=== PATIENT | female | born 1940 | race Caucasian/White ===

== ENCOUNTER 2017-02-07 23:45 | Emergency (ER) | payer OTHER ==
[~2017-02-07] VITALS: Ht 160 cm; Wt 68.0 kg
[~2017-02-07 23:45] MED LIST: ALAV10TA PO; AMLO10TA2 PO; BRIM0.2S EACH EYE; CEPH250T PO; CITRTAB7 PO; CRAN425C2 PO; FLON0.053 EACH NARE; FORT600S; FURO20TA PO; LACT10SO47 PO; LEVE500 PO; LEVO.05 PO; LISI-360 PO; TRAZ50TA12 PO; TRIA.1%T TOP
[2017-02-07 23:51] VITALS: BP 106/50; PULSE 71; RESP 16; TEMP 97.2; O2SAT 100
[2017-02-08] MEDS ORDERED: SPIR25TA PO (00:12)
[2017-02-08] MEDS ORDERED: LISI-515 PO (00:12)
[2017-02-08] MEDS ORDERED: OMEP10CA PO (00:12)
--- NOTE | 2017-02-08 01:07 | PD ---
HPI Chief Complaint: Musculoskeletal Complaint Time Seen by Provider: 01:02 Travel History International Travel<30 days: No Contact w/Intl Traveler<30days: No Traveled to known affect area: No History of Present Illness HPI The patient is a 76-year-old female that lost balance and fell tonight and landed on her right arm. She is not specific about where her right arm hurts, the entire right arm hurts according the patient. 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 PFSH Past Medical History Hx Anticoagulant Therapy: No Anemia: Yes Arthritis: No Asthma: No Autoimmune Disease: No Blood Disorders: No Anxiety: No Depression: No Heart Rhythm Problems: No Cancer: No Cardiovascular Problems: Yes (htn on meds) High Cholesterol: No Chemotherapy: No Chest Pain: No Congestive Heart Failure: No COPD: No Cerebrovascular Accident: Yes (hx of cva right side weakness) Diabetes: No Diminished Hearing: No Endocrine: Yes Gastrointestinal Disorders: Yes (COLON INFECTION 20 YRS AGO) GERD: No Glaucoma: No Genitourinary: Yes (FREQUENT UTI'S SINCE STROKE) Headaches: Yes Hepatitis: No Hiatal Hernia: No Hypertension: Yes Immune Disorder: No Implanted Vascular Access Dvce: Yes Kidney Stones: No Medical other: Yes (RECEPTIVE AND EXPRESSIVE APHASIA, PT HAD MYELOGRAM ON 2014) Musculoskeletal: Yes (R SIDED WEAKNESS, R ARM PARALYZED,COMP FX SPINE,ARTHRITIS ,SPINE INJURY 06/01) Neurologic: Yes (HEMMOR STROKE IN DEC 1991, R SIDE WEAKNESS, R ARM PARALYZED, HX OF SEIZURES) Psychiatric: Yes (SLIGHTLY CLAUSTROPHOBIC) Reproductive: No Respiratory: No Immunizations Current: Yes Migraines: No Myocardial Infarction: No Renal Failure: No Seizures: Yes Sickle Cell Disease: No Sleep Apnea: No Thyroid Disease: Yes (HYPO THYROID) Ulcer: No ?: Not Menopausal: Yes : 3 Para: 3 Past Surgical History Abdominal Surgery: No AICD: No Appendectomy: No Arteriovenous Shunt: No Body Medical Devices: ANEURYSM CLIP, SHUNT IN BRAIN Cardiac Surgery: No Section: No Ear Surgery: No Endocrine Surgery: No Eye Surgery: Yes (BILAT CATARACTS REMOVED) Genitourinary Surgery: No Gynecologic Surgery: No Insulin Pump: Yes Joint Replacement: No Neurologic Surgery: Yes (ANEURYSM CLIP AND SHUNT IN BRAIN june 2014 back surgery/fused t10-L4) Oral Surgery: No Pacemaker: No Thoracic Surgery: Yes (R BREAST CYST REMOVED) Other Surgery: Yes Social History Alcohol Use: Yes (occasional ) Tobacco Use: No Substance Use: No Allergies-Medications (Allergen,Severity, Reaction): Coded Allergies: ciprofloxacin (Unverified Allergy, Unknown, 11/01/16) LOW GRADE FEVER AND DISORIENTATION levofloxacin (Unverified Allergy, Unknown, 11/01/16) LOW GRADE FEVER, DISORIENTATION Reported Meds & Prescriptions Reported Meds & Active Scripts Active Reported Spironolactone 25 Mg Tab 25 Mg PO DAILY Omeprazole 10 Mg Cap 10 Mg PO DAILY Lisinopril 20 Mg Tab 20 Mg PO DAILY Keppra (Levetiracetam) 500 Mg Tab 500 Mg PO BID Trazodone (Trazodone HCl) 50 Mg Tab 25 Mg PO HS Review of Systems Except as stated in HPI: all other systems reviewed are Neg Physical Exam Narrative GENERAL: Well-nourished, well-developed patient in slight apparent distress with her right arm discomfort. SKIN: Focused skin assessment warm/dry. HEAD: Normocephalic. EYES: No scleral icterus. No injection or drainage. NECK: Supple, trachea midline. No JVD or lymphadenopathy. CARDIOVASCULAR: Regular rate and rhythm without murmurs, gallops, or rubs. RESPIRATORY: Breath sounds equal bilaterally. No accessory muscle use. GASTROINTESTINAL: Abdomen soft, non-tender, nondistended. MUSCULOSKELETAL: No cyanosis, or edema. No ecchymoses or deformity are present. Good capillary refill and pinprick is present distally on the right hand. BACK: Nontender without obvious deformity. No CVA tenderness. Data Data Last Documented VS Vital Signs Date Time Temp Pulse Resp B/P (MAP) Pulse Ox O2 Delivery O2 Flow Rate FiO2 02/07/17 23:51 97.2 71 16 106/50 (68) 100 Orders Orders Forearm (2vws) (02/08/17 ) Shoulder, Limited(2vws) (02/08/17 ) Humerus (Min 2vws) (02/08/17 ) Oxycodone-Acetamin 7.5-325 Mg (Percocet (02/08/17 01:45) MDM Medical Decision Making Medical Screen Exam Complete: Yes Emergency Medical Condition: Yes Medical Record Reviewed: Yes Interpretation(s) The patient has an acute fracture in the supracondylar region of the distal right humerus. There is mild posterior angulation deformity and the articular surfaces are intact. No subluxations are seen. X-rays of the right forearm and right shoulder show osteopenia and osteoarthritis but no acute fracture. Differential Diagnosis Fracture shoulder, fractured humerus, fracture forearm, contusion forearm, contusion elbow, contusion shoulder, rotator cuff tear Narrative Course The patient has a mostly nondisplaced fracture of the distal right humerus. There is mild posterior angulation deformity. No subluxations are noted. Diagnosis Primary Impression: Supracondylar fracture of right humerus Additional Instructions: As we discussed, follow-up with orthopedics, call later on today to set up an appointment. Percocet 5 is prescribed for pain, do not drink alcohol or drive with this medication and she should drink plenty of liquids because it can be constipating. Med/Other Pt SpecificInfo: Prescription(s) given Scripts Oxycodone-Acetaminophen (Percocet) 5-325 mg Tab 1 TAB PO Q6H Y for PAIN, #21 TAB 0 Refills Prov: Glenroy Flores MD 02/08/17 Disposition: 01 DISCHARGE HOME Condition: Stable Glenroy Flores MD Feb 08, 2017 01:07
--- NOTE | 2017-02-08 01:19 | RADRPT ---
EXAM DATE/TIME: 02/08/2017 00:38 [facility] COMPARISON: No previous studies available for comparison. INDICATIONS : Right forearm pain after fall. MEDICAL HISTORY : Stroke. SURGICAL HISTORY : Cholecystectomy. Craniotomy.aneurysm clipping ENCOUNTER: Initial ACUITY: 1 day PAIN SCORE: 10/10 LOCATION: Right forearm. FINDINGS: I don't see an acute fracture of the right radius or ulna. I believe there is an old, healed olecrano n fracture. Bones are diffusely osteopenic. CONCLUSION: No acute fracture of the right forearm. Ashwin Gardner MD on February 08, 2017 at 1:16 Board Certified Radiologist. This report was verified electronically.
--- NOTE | 2017-02-08 01:21 | RADRPT ---
EXAM DATE/TIME: 02/08/2017 00:38 [facility] COMPARISON: No previous studies available for comparison. INDICATIONS : Right arm pain after fall. MEDICAL HISTORY : Stroke. SURGICAL HISTORY : Cholecystectomy. Craniotomy.aneurysm clipping ENCOUNTER: Initial ACUITY: 1 day PAIN SCORE: 10/10 LOCATION: Right proximal humerus. FINDINGS: An acute appearing fracture is seen in the supracondylar region of the distal right humerus. There is mild posterior angulation deformity. I believe the articular surfaces are intact. There are no sublu xations. CONCLUSION: Distal right humerus fracture with slight posterior angulation deformity. Ashwin Gardner MD on February 08, 2017 at 1:18 Board Certified Radiologist. This report was verified electronically.
--- NOTE | 2017-02-08 01:24 | RADRPT ---
EXAM DATE/TIME: 02/08/2017 00:38 [facility] COMPARISON: No previous studies available for comparison. INDICATIONS : Right shoulder pain after fall. MEDICAL HISTORY : Stroke. SURGICAL HISTORY : Cholecystectomy. Craniotomy.aneurysm clipping ENCOUNTER: Initial ACUITY: 1 day PAIN SCORE: 10/10 LOCATION: Right proximal shoulder. FINDINGS: No fracture or subluxation seen of the right shoulder. Moderate acromioclavicular ankle and humeral j oint osteoarthritis noted. Bones are osteopenic. A ventriculoperitoneal shunt catheter is partly seen and there is considerable partly calcified fibro us sheath around its margins. CONCLUSION: Intact right shoulder. Moderate osteoarthritis. Ashwin Gardner MD on February 08, 2017 at 1:20 Board Certified Radiologist. This report was verified electronically.
[2017-02-08] MEDS ORDERED: PERC5TAB12 PO (01:37)
[2017-02-08] MEDS ORDERED: oxyCODONE/ACETAMINOPHEN 7.5 MG/325 MG TAB PO ONE (01:45)
[2017-02-08 02:35] VITALS: BP 110/68
== END 2017-02-08 02:38 | disposition home or self-care (01) ==
LOC: PHED 23:45
DX: S42.411A Displaced simple supracondylar fracture without intercondylar fracture of right humerus, initial encounter for closed fracture (principal); W01.0XXA Fall on same level from slipping, tripping and stumbling without subsequent striking against object, initial encounter
CPT/HCPCS: 29105; 73030; 73060; 73090

== ENCOUNTER 2017-06-16 11:52 | Inpatient (IN) | payer OTHER, MEDICARE ==
[2017-06-16] VITALS (37 sets, daily range): BP systolic 61–133; BP diastolic 28–86; PULSE 56–86; RESP 17–18; TEMP 92.2–97.2; O2SAT 95–99
[~2017-06-16] VITALS: Ht 160 cm; Wt 78.5 kg
[~2017-06-16 11:52] MED LIST changes: -ALAV10TA PO; -AMLO10TA2 PO; -BRIM0.2S EACH EYE; -CEPH250T PO; -CITRTAB7 PO; -CRAN425C2 PO; -FLON0.053 EACH NARE; -FORT600S; -FURO20TA PO; -LACT10SO47 PO; -LEVO.05 PO; -LISI-360 PO; +LISI-515 PO; +OMEP10CA PO; +PERC5TAB12 PO; +SPIR25TA PO; -TRIA.1%T TOP
[2017-06-16 12:37] LABS: AUTOMATED NEUTROPHIL # 1.3 TH/MM3 (1.8-7.7); BASOPHIL # 0.1 TH/MM3 (0-0.2); BASOPHIL % 1.8 % (0.0-2.0); EOSINOPHIL # 0.1 TH/MM3 (0-0.4); EOSINOPHIL % 2.5 % (0.0-4.0); HEMATOCRIT 26.4 % (35.0-46.0); HEMOGLOBIN 8.9 GM/DL (11.6-15.3); LYMPH % 43.2 % (9.0-44.0); LYMPHOCYTE # 1.5 TH/MM3 (1.0-4.8); MEAN CELL VOLUME 94.5 FL (80.0-100.0); MEAN CORPUSCULAR HEMOGLOBIN 31.7 PG (27.0-34.0); MEAN CORPUSCULAR HGB CONC 33.6 % (32.0-36.0); MEAN PLATELET VOLUME 7.7 FL (7.0-11.0); MONO % 14.7 % (0.0-8.0); MONOCYTE # 0.5 TH/MM3 (0-0.9); NEUT % 37.8 % (16.0-70.0); PLATELET COUNT 95 TH/MM3 (150-450); RED BLOOD COUNT 2.79 MIL/MM3 (4.00-5.30); RED CELL DISTRIBUTION WIDTH 14.4 % (11.6-17.2); WHITE BLOOD COUNT 3.5 TH/MM3 (4.0-11.0)
[2017-06-16] MEDS ORDERED: THERTAB41 PO (12:39)
[2017-06-16] MEDS ORDERED: LEVO50TA4 PO (12:39)
[2017-06-16] MEDS ORDERED: CLAR10CA3 PO (12:39)
[2017-06-16] MEDS ORDERED: BRIM0.2S4 EACH EYE (12:39)
[2017-06-16] MEDS ORDERED: CALC1TAB16 PO (12:39)
[2017-06-16] MEDS ORDERED: FLUT50SP EACH NARE (12:39)
[2017-06-16] MEDS ORDERED: LACT10SO PO (12:39)
[2017-06-16 12:45] LABS: CHLORIDE 97 MEQ/L (98-107); SODIUM (NA) 131 MEQ/L (136-145)
[2017-06-16 12:48] LABS: BICARBONATE 26.1 MEQ/L (21.0-32.0); GLUCOSE,RANDOM 106 MG/DL (74-106)
[2017-06-16 12:49] LABS: BLOOD UREA NITROGEN 21 MG/DL (7-18)
[2017-06-16 12:51] LABS: ALT (GPT) 28 U/L (10-53); PROTHROMBIN TIME - PATIENT 10.1 SEC (9.8-11.6)
[2017-06-16 12:52] LABS: AST (GOT) 30 U/L (15-37); GLOMERULAR FILTRATION RATE 48 ML/MIN (>89)
[2017-06-16 12:53] LABS: TOTAL BILIRUBIN ADULT 0.4 MG/DL (0.2-1.0); TOTAL PROTEIN 6.6 GM/DL (6.4-8.2)
--- NOTE | 2017-06-16 12:53 | PD ---
HPI Chief Complaint: General Weakness Time Seen by Provider: 12:40 Travel History International Travel<30 days: No Contact w/Intl Traveler<30days: No Traveled to known affect area: No History of Present Illness HPI This patient is brought in by her . He reports that her blood pressures have been running lower than usual. She has history of alcohol induced liver disease. She now drinks. She has history of anemia and thrombocytopenia. She has not had any fever or injury. She has chronic leg edema. She has generalized weakness. Symptoms moderately severe. No alleviating factors. Symptoms exacerbated by her liver disease. Duration is 2 weeks PFSH Past Medical History Hx Anticoagulant Therapy: No Anemia: Yes Arthritis: No Asthma: No Autoimmune Disease: No Blood Disorders: No Anxiety: No Depression: No Heart Rhythm Problems: No Cancer: No Cardiovascular Problems: Yes (htn on meds) High Cholesterol: No Chemotherapy: No Chest Pain: No Congestive Heart Failure: No COPD: No Cerebrovascular Accident: Yes (hx of cva right side weakness) Diabetes: No Diminished Hearing: No Endocrine: Yes Gastrointestinal Disorders: Yes (COLON INFECTION 20 YRS AGO) GERD: No Glaucoma: No Genitourinary: Yes (FREQUENT UTI'S SINCE STROKE) Headaches: Yes Hepatitis: No Hiatal Hernia: No Hypertension: Yes Immune Disorder: No Implanted Vascular Access Dvce: Yes Kidney Stones: No Medical other: Yes (RECEPTIVE AND EXPRESSIVE APHASIA) Musculoskeletal: Yes (R SIDED WEAKNESS, R ARM PARALYZED,COMP FX SPINE,ARTHRITIS ,SPINE INJURY 06/01) Neurologic: Yes (HEMMOR STROKE IN DEC 1991, R SIDE WEAKNESS, R ARM PARALYZED, HX OF SEIZURES) Psychiatric: Yes (SLIGHTLY CLAUSTROPHOBIC) Reproductive: No Respiratory: No Immunizations Current: Yes Migraines: No Myocardial Infarction: No Renal Failure: No Seizures: Yes Sickle Cell Disease: No Sleep Apnea: No Thyroid Disease: Yes (HYPO THYROID) Ulcer: No ?: Not Menopausal: Yes : 3 Para: 3 Past Surgical History Abdominal Surgery: No AICD: No Appendectomy: No Arteriovenous Shunt: No Body Medical Devices: ANEURYSM CLIP, SHUNT IN BRAIN Cardiac Surgery: No Section: No Ear Surgery: No Endocrine Surgery: No Eye Surgery: Yes (BILAT CATARACTS REMOVED) Genitourinary Surgery: No Gynecologic Surgery: No Insulin Pump: Yes Joint Replacement: No Neurologic Surgery: Yes (ANEURYSM CLIP, SHUNT W/ REVISION) Oral Surgery: No Pacemaker: No Thoracic Surgery: Yes (R BREAST CYST REMOVED) Other Surgery: Yes Social History Alcohol Use: No (FORMER) Tobacco Use: No Substance Use: No Allergies-Medications (Allergen,Severity, Reaction): Coded Allergies: amoxicillin (Verified Allergy, Severe, DISORIENTED, 06/16/17) ceftriaxone (Verified Allergy, Severe, DISORIENTED, 06/16/17) ciprofloxacin (Unverified Allergy, Unknown, DISORIENTED, 06/16/17) LOW GRADE FEVER AND DISORIENTATION levofloxacin (Unverified Allergy, Unknown, DISORIENTED, 06/16/17) LOW GRADE FEVER, DISORIENTATION Reported Meds & Prescriptions Reported Meds & Active Scripts Active Reported Lactulose Liq (Lactulose) 10 Gm/15 Ml Soln 15 Ml PO Q8HR PRN Thermotabs (Oral Electrolytes) 287 Mg-180 Mg-15 Mg Tab 1 Tab PO DAILY Levothyroxine (Levothyroxine Sodium) 50 Mcg Tab 50 Mcg PO DAILY Claritin (Loratadine) 10 Mg Cap 10 Mg PO DAILY Brimonidine Opth Drops (Brimonidine Tartrate) 0.2% Soln 1 Drop EACH EYE BID Calcium Citrate-Vitamin D 315-200 Mg-Unit Tab 1 Tab PO BID Fluticasone [place] 50 Mcg/Act Naspr 100 Mcg EACH NARE DAILY 50 mcg/spray Spironolactone 25 Mg Tab 25 Mg PO DAILY Omeprazole 10 Mg Cap 20 Mg PO DAILY Lisinopril 20 Mg Tab 10 Mg PO BID Keppra (Levetiracetam) 500 Mg Tab 750 Mg PO BID Trazodone (Trazodone HCl) 50 Mg Tab 25 Mg PO HS Review of Systems General / Constitutional: No: Fever Eyes: No: Visual changes HENT: Positive: Lightheadedness, No: Headaches Cardiovascular: Positive: Edema, No: Chest Pain or Discomfort Respiratory: No: Shortness of Breath Gastrointestinal: No: Abdominal Pain Genitourinary: No: Dysuria Musculoskeletal: Positive: Weakness, Edema, No: Pain Skin: No Rash Neurologic: Positive: Weakness Psychiatric: No: Depression Endocrine: No: Polydipsia Hematologic/Lymphatic: No: Easy Bruising Physical Exam Narrative GENERAL: Well-nourished, well-developed patient in no apparent distress. SKIN: Focused skin assessment reveals no rash and nodules. Skin is Warm and dry. HEAD: Atraumatic. has a right-sided [employer] shunt without tenderness or erythema EYES: Pupils equal and round. No scleral icterus. No injection or drainage. ENT: No nasal bleeding or discharge. Mucous membranes pink and moist. NECK: Trachea midline. No JVD. No meningeal signs CARDIOVASCULAR: Regular rate and rhythm. No murmur appreciated. RESPIRATORY: No accessory muscle use. Clear to auscultation. Breath sounds equal bilaterally. GASTROINTESTINAL: Abdomen soft, non-tender, nondistended. Hepatic and splenic margins not palpable. MUSCULOSKELETAL: Contraction and paresis of the right upper extremity from prior stroke. No clubbing. No cyanosis. Symmetric edema of the feet ankles and lower legs . NEUROLOGICAL: Awake and alert. No obvious cranial nerve deficits. Motor exam shows mostly paralyzed right arm with generalized weakness diffusely . Soft spoken and barely understandable speech. PSYCHIATRIC: Appropriate mood and affect; insight and judgment reduced . Data Data Last Documented VS Vital Signs Date Time Temp Pulse Resp B/P (MAP) Pulse Ox O2 Delivery O2 Flow Rate FiO2 06/16/17 13:36 63 18 80/43 (55) 97 06/16/17 13:05 94.5 Room Air Orders Orders Complete Blood Count With Diff (06/16/17 12:24) Comprehensive Metabolic Panel (06/16/17 12:24) Act Partial Throm Time (Ptt) (06/16/17 12:24) Prothrombin Time / Inr (Pt) (06/16/17 12:24) Urinalysis - C+S If Indicated (06/16/17 12:24) Electrocardiogram (06/16/17 ) Chest, Single Ap (06/16/17 ) Sodium Chlor 0.9% 1000 Ml Inj (Ns 1000 M (06/16/17 13:00) Urine Culture (06/16/17 13:34) Ceftazidime Inj (Fortaz Inj) (06/16/17 14:15) Blood Culture (06/16/17 14:10) Admit Order (Ed Use Only) (06/16/17 14:32) Labs Laboratory Tests Test 06/16/17 12:15 06/16/17 13:34 White Blood Count 3.5 TH/MM3 Red Blood Count 2.79 MIL/MM3 Hemoglobin 8.9 GM/DL Hematocrit 26.4 % Mean Corpuscular Volume 94.5 FL Mean Corpuscular Hemoglobin 31.7 PG Mean Corpuscular Hemoglobin Concent 33.6 % Red Cell Distribution Width 14.4 % Platelet Count 95 TH/MM3 Mean Platelet Volume 7.7 FL Neutrophils (%) (Auto) 37.8 % Lymphocytes (%) (Auto) 43.2 % Monocytes (%) (Auto) 14.7 % Eosinophils (%) (Auto) 2.5 % Basophils (%) (Auto) 1.8 % Neutrophils # (Auto) 1.3 TH/MM3 Lymphocytes # (Auto) 1.5 TH/MM3 Monocytes # (Auto) 0.5 TH/MM3 Eosinophils # (Auto) 0.1 TH/MM3 Basophils # (Auto) 0.1 TH/MM3 CBC Comment AUTO DIFF Differential Comment AUTO DIFF CONFIRMED Platelet Estimate LOW Platelet Morphology Comment NORMAL Prothrombin Time 10.1 SEC Prothromb Time International Ratio 1.0 RATIO Activated Partial Thromboplast Time 27.2 SEC Blood Urea Nitrogen 21 MG/DL Creatinine 1.10 MG/DL Random Glucose 106 MG/DL Total Protein 6.6 GM/DL Albumin 3.0 GM/DL Calcium Level 9.0 MG/DL Alkaline Phosphatase 91 U/L Aspartate Amino Transf (AST/SGOT) 30 U/L Alanine Aminotransferase (ALT/SGPT) 28 U/L Total Bilirubin 0.4 MG/DL Sodium Level 131 MEQ/L Potassium Level 4.2 MEQ/L Chloride Level 97 MEQ/L Carbon Dioxide Level 26.1 MEQ/L Anion Gap 8 MEQ/L Estimat Glomerular Filtration Rate 48 ML/MIN Urine Collection Type CATH Urine Color YELLOW Urine Turbidity SL CLOUDY Urine pH 6.5 Urine Specific [place] LESS/EQUAL 1.005 Urine Protein NEG mg/dL Urine Glucose (UA) NEG mg/dL Urine Ketones NEG mg/dL Urine Occult Blood TRACE Urine Nitrite NEG Urine Bilirubin NEG Urine Urobilinogen 0.2 MG/DL Urine Leukocyte Esterase LARGE Urine RBC 4-9 /hpf Urine WBC 100-200 /hpf Urine WBC Clumps MOD Urine Bacteria MANY /hpf Microscopic Urinalysis Comment CATH-CULTURE IND Urine Collection Time 13:34 MDM Medical Decision Making Medical Screen Exam Complete: Yes Emergency Medical Condition: Yes Medical Record Reviewed: Yes Differential Diagnosis Dehydration, hypotension, anemia Narrative Course I have reviewed the patient's electronic medical record. I reviewed her oncologist visit from 2 weeks ago IV placed and I started some IV fluid at 250 cc of saline per hour She is hypotensive at 93 systolic Has sinus rhythm in the 60s Extended cardiac monitoring reveals sinus rhythm between 60 and 70 I reviewed her EKG which shows sinus rhythm without ectopy or ST elevation Lab studies sent Urinalysis shows 1-200 white cells I reviewed her chest x-ray which shows mild cardiomegaly patient has hepatic encephalopathy and her gives her lactulose daily Current blood pressure 102 systolic She seems to be improving She is DNR and I do not feel needs bonding machine setter at this time I reviewed with the hospitalist to we will put her into intensive care I gave her a dose of IV Fortaz. She does not have a true allergy to cephalosporin. I reviewed this with the . I have ordered a blood culture Critical Care Narrative Aggregate critical care time was 36 minutes. Time to perform other separately billable procedures was not included in the critical care time. My time did not include minutes spent treating any other patients simultaneously or on activities that did not directly contribute to the patient's treatment. The services I provided to this patient were to treat and/or prevent clinically significant deterioration that could result in: Cardiopulmonary arrest, hypovolemic shock, septic shock I provided critical care services requiring my management, as noted below: Chart data review, documentation time, medication orders and management, vital sign assessments/reviewing monitor data, ordering and reviewing lab tests, ordering and interpreting/reviewing x-rays and diagnostic studies, care of the patient and discussion of the patient with the admitting physicians. Sepsis Criteria SIRS Criteria (2 or more): Temp > 100.9 or < 96.8 Sepsis Criteria (SIRS+source): Infect source susp/known Severe Sepsis (+one): Hypotension Criteria Outcome: Meets severe sepsis criteria Diagnosis Primary Impression: Severe sepsis Additional Impressions: Cirrhosis of liver Qualified Codes: K70.30 - Alcoholic cirrhosis of liver without ascites Pancytopenia Admitting Information Admitting Physician Requests: Admit Erik Szymanski MD Jun 16, 2017 12:53
[2017-06-16 12:54] LABS: ALKALINE PHOSPHATASE 91 U/L (45-117)
[2017-06-16] MEDS ORDERED: SODIUM CHLOR 0.9% 1000 ML INJ 1,000 ML IV ONE ×2 (13:00→23:30)
--- NOTE | 2017-06-16 13:20 | RADRPT ---
EXAM DATE/TIME: 06/16/2017 12:45 [facility] COMPARISON: CHEST SINGLE AP, June 22, 2015, 7:01. INDICATIONS : Cough MEDICAL HISTORY : Stroke. SURGICAL HISTORY : Cholecystectomy. Craniotomy. aneurysm clipping ENCOUNTER: Initial ACUITY: 1 day PAIN SCORE: 0/10 LOCATION: Bilateral chest FINDINGS: A single view of the chest demonstrates the lungs to be symmetrically aerated without evidence of mas s, infiltrate or effusion. The heart size appears mildly prominent. There is no perihilar edema. Oss eous structures are intact. There is overlying shunt catheter tubing again noted. Surgical hardware i s again noted in the lumbar spine. Atherosclerotic changes are present in the aorta. CONCLUSION: Mild cardiomegaly with no evidence of pulmonary edema or pneumonia. Tae Roy MD on June 16, 2017 at 13:17 Board Certified Radiologist. This report was verified electronically.
[2017-06-16 13:43] LABS: BILIRUBIN, URINE NEG (NEG); BLOOD, URINE TRACE (NEG); GLUCOSE,URINE NEG (NEG); KETONE, URINE NEG (NEG); NITRITE,URINE NEG (NEG); PH, URINE 6.5 (5.0-8.5); URINE COLOR YELLOW (YELLW/STRAW); URINE LEUKOCYTE ESTERASE LARGE (NEG)
[2017-06-16 13:49] LABS: BACTERIA, URINE MANY /hpf; WBC, URINE 100-200 /hpf (0-5); WHITE BLOOD CELL CLUMPS MOD
[2017-06-16] MEDS ORDERED: cefTAZidime INJ 2,000 MG in SODIUM CHLORIDE 0.9% INJ 100 ML IV ONE (14:15)
[2017-06-16] MEDS: SODIUM CHLOR 0.9% 1000 ML INJ 1,000 ML IV SCH ×2 (14:35→21:15)
[2017-06-16] MEDS ORDERED: NALOXONE HCL 0.4 MG/ML AMP IV PUSH PRN (14:45)
[2017-06-16] MEDS ORDERED: SODIUM CHLORIDE 0.9% FLUSH 10 ML FLUSH IV FLUSH PRN ×2 (14:45→15:00)
--- NOTE | 2017-06-16 14:56 | HHI.HP ---
[facility] Service [place] [facility] Primary Care Physician Obey Hill Do, MD Admission Diagnosis hypotension, UTI,cirrhosis Diagnoses: (1) Hypotension Diagnosis: Principal (2) Septic shock Diagnosis: Principal (3) UTI (urinary tract infection) Diagnosis: Principal (4) Severe sepsis Diagnosis: Principal (5) Pancytopenia Diagnosis: Principal Travel History International Travel<30 Days: No Contact w/Intl Traveler <30 Da: No Traveled to Known Affected Are: No History of Present Illness Mrs. Kiran is a 76 year old female. At baseline she has expressive and receptive aphasia. She can provide no history. She has brought in secondary to low blood pressures at home. She is found to have urinary tract infection. Temperature is a little. Blood pressure is low. White blood cell count is suppressed. She meets criteria for septic shock. Lactic acid is pending. A review of her past hospital visit shows no previous history of chronic hypothermia, chronic hypotension, or chronic leukopenia. No other complaints at this time. 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 Bilateral cataract surgery Insulin pump Right breast cyst removal Reported Medications Reported Meds & Active Scripts Active Reported Lactulose Liq (Lactulose) 10 Gm/15 Ml Soln 15 Ml PO Q8HR PRN Thermotabs (Oral Electrolytes) 287 Mg-180 Mg-15 Mg Tab 1 Tab PO DAILY Levothyroxine (Levothyroxine Sodium) 50 Mcg Tab 50 Mcg PO DAILY Claritin (Loratadine) 10 Mg Cap 10 Mg PO DAILY Brimonidine Opth Drops (Brimonidine Tartrate) 0.2% Soln 1 Drop EACH EYE BID Calcium Citrate-Vitamin D 315-200 Mg-Unit Tab 1 Tab PO BID Fluticasone Nasal [place] 50 Mcg/Act Naspr 100 Mcg EACH NARE DAILY 50 mcg/spray Spironolactone 25 Mg Tab 25 Mg PO DAILY Omeprazole 10 Mg Cap 20 Mg PO DAILY Lisinopril 20 Mg Tab 10 Mg PO BID Keppra (Levetiracetam) 500 Mg Tab 750 Mg PO BID Trazodone (Trazodone HCl) 50 Mg Tab 25 Mg PO HS Allergies: Coded Allergies: amoxicillin (Verified Allergy, Severe, DISORIENTED, 06/16/17) ceftriaxone (Verified Allergy, Severe, DISORIENTED, 06/16/17) ciprofloxacin (Unverified Allergy, Unknown, DISORIENTED, 06/16/17) LOW GRADE FEVER AND DISORIENTATION levofloxacin (Unverified Allergy, Unknown, DISORIENTED, 06/16/17) LOW GRADE FEVER, DISORIENTATION Active Ordered Medications Administered Medications Medications (Trade) Dose Ordered Sig/Do Route PRN Reason Start Time Stop Time Status Last Admin Dose Admin Sodium Chloride 1,000 ml @ 250 mls/hr Q4H ONCE IV 06/16/17 13:00 06/16/17 16:59 06/16/17 12:54 Ceftazidime 2000 mg/Sodium Chloride 100 ml @ 200 mls/hr ONCE ONCE IV 06/16/17 14:15 06/16/17 14:44 06/16/17 14:40 Family History Unable to obtain. Social History Alcohol Use: No (FORMER) Tobacco Use: No Substance Use: No Physical Exam Vital Signs Vital Signs Date Time Temp Pulse Resp B/P (MAP) Pulse Ox O2 Delivery O2 Flow Rate FiO2 06/16/17 13:36 63 18 80/43 (55) 97 06/16/17 13:05 94.5 61 18 84/38 (53) 97 Room Air 06/16/17 12:35 92.2 06/16/17 12:26 62 18 73/37 (49) 97 Physical Exam GENERAL: NAD, A&Ox3 HEAD: Normocephalic. NECK: Supple, trachea midline. No lymphadenopathy. EYES: No scleral icterus. No injection or drainage. CARDIOVASCULAR: Regular rate and rhythm without murmurs, gallops, or rubs. RESPIRATORY: Breath sounds equal bilaterally. No accessory muscle use. GASTROINTESTINAL: Abdomen soft, non-tender, nondistended. MUSCULOSKELETAL: No cyanosis, or edema. SKIN: Warm and dry. NEURO: No focal neurological deficitis. Laboratory Laboratory Tests Test 06/16/17 12:15 06/16/17 13:34 White Blood Count 3.5 Red Blood Count 2.79 Hemoglobin 8.9 Hematocrit 26.4 Mean Corpuscular Volume 94.5 Mean Corpuscular Hemoglobin 31.7 Mean Corpuscular Hemoglobin Concent 33.6 Red Cell Distribution Width 14.4 Platelet Count 95 Mean Platelet Volume 7.7 Neutrophils (%) (Auto) 37.8 Lymphocytes (%) (Auto) 43.2 Monocytes (%) (Auto) 14.7 Eosinophils (%) (Auto) 2.5 Basophils (%) (Auto) 1.8 Neutrophils # (Auto) 1.3 Lymphocytes # (Auto) 1.5 Monocytes # (Auto) 0.5 Eosinophils # (Auto) 0.1 Basophils # (Auto) 0.1 CBC Comment AUTO DIFF Differential Comment AUTO DIFF CONFIRMED Platelet Estimate LOW Platelet Morphology Comment NORMAL Prothrombin Time 10.1 Prothromb Time International Ratio 1.0 Activated Partial Thromboplast Time 27.2 Blood Urea Nitrogen 21 Creatinine 1.10 Random Glucose 106 Total Protein 6.6 Albumin 3.0 Calcium Level 9.0 Alkaline Phosphatase 91 Aspartate Amino Transf (AST/SGOT) 30 Alanine Aminotransferase (ALT/SGPT) 28 Total Bilirubin 0.4 Sodium Level 131 Potassium Level 4.2 Chloride Level 97 Carbon Dioxide Level 26.1 Anion Gap 8 Estimat Glomerular Filtration Rate 48 Urine Collection Type CATH Urine Color YELLOW Urine Turbidity SL CLOUDY Urine pH 6.5 Urine Specific [place] LESS/EQUAL 1.005 Urine Protein NEG Urine Glucose (UA) NEG Urine Ketones NEG Urine Occult Blood TRACE Urine Nitrite NEG Urine Bilirubin NEG Urine Urobilinogen 0.2 Urine Leukocyte Esterase LARGE Urine RBC 4-9 Urine WBC 100-200 Urine WBC Clumps MOD Urine Bacteria MANY Microscopic Urinalysis Comment CATH-CULTURE IND Urine Collection Time 13:34 Date/Time Source Procedure Growth Status 06/16/17 14:30 Blood Peripheral Aerobic Blood Culture Pending Received 06/16/17 14:30 Blood Peripheral Anaerobic Blood Culture Pending Received 06/16/17 13:34 Urine Catheterized Urine Urine Culture Pending Received Result Diagram: 06/16/17 1215 06/16/17 1215 Imaging Last Impressions Chest X-Ray 06/16/17 0000 Signed Impressions: Service Date/Time: Friday, June 16, 2017 12:45 - CONCLUSION: Mild cardiomegaly with no evidence of pulmonary edema or pneumonia. Tae R. Schiering, MD Caprini VTE Risk Assessment Caprini VTE Risk Assessment: No/Low Risk (score <= 1) Caprini Risk Assessment Model Point Value = 1 Point Value = 2 Point Value = 3 Point Value = 5 Age 41-60 Minor surgery BMI > 25 kg/m2 Swollen legs Varicose veins or History of unexplained or recurrent spontaneous Oral contraceptives or hormone replacement Sepsis (< 1 month) Serious lung disease, including pneumonia (< 1 month) Abnormal pulmonary function Acute myocardial infarction Congestive heart failure (< 1 month) History of inflammatory bowel disease Medical patient at bed rest Age 61-74 Arthroscopic surgery Major open surgery (> 45 min) Laparoscopic surgery (> 45 min) Malignancy Confined to bed (> 72 hours) Immobilizing plaster cast Central venous access Age >= 75 History of VTE Family history of VTE Factor V Leiden Prothrombin [id number] Lupus anticoagulant Anticardiolipin antibodies Elevated serum homocysteine Heparin-induced thrombocytopenia Other congenital or acquired thrombophilia Stroke (< 1 month) Elective arthroplasty Hip, pelvis, or leg fracture Acute spinal cord injury (< 1 month) Prophylaxis Regimen Total Risk Factor Score Risk Level Prophylaxis Regimen 0-1 Low Early ambulation 2 Moderate Order ONE of the following: *Sequential Compression Device (SCD) *Heparin 5000 units SQ BID 3-4 Higher Order ONE of the following medications: *Heparin 5000 units SQ TID *Enoxaparin/Lovenox 40 mg SQ daily (WT < 150 kg, CrCl > 30 mL/min) *Enoxaparin/Lovenox 30 mg SQ daily (WT < 150 kg, CrCl > 10-29 mL/min) *Enoxaparin/Lovenox 30 mg SQ BID (WT < 150 kg, CrCl > 30 mL/min) AND/OR *Sequential Compression Device (SCD) 5 or more Highest Order ONE of the following medications: *Heparin 5000 units SQ TID (Preferred with Epidurals) *Enoxaparin/Lovenox 40 mg SQ daily (WT < 150 kg, CrCl > 30 mL/min) *Enoxaparin/Lovenox 30 mg SQ daily (WT < 150 kg, CrCl > 10-29 mL/min) *Enoxaparin/Lovenox 30 mg SQ BID (WT < 150 kg, CrCl > 30 mL/min) AND *Sequential Compression Device (SCD) Assessment and Plan Problem List: (1) Hypotension ICD Code: I95.9 - Hypotension, unspecified (2) UTI (urinary tract infection) ICD Code: N39.0 - Urinary tract infection, site not specified (3) Septic shock ICD Code: A41.9 - Sepsis, unspecified organism; R65.21 - Severe sepsis with septic shock (4) Severe sepsis ICD Code: A41.9 - Sepsis, unspecified organism; R65.20 - Severe sepsis without septic shock Status: Acute (5) Pancytopenia ICD Code: D61.818 - Other pancytopenia Status: Acute Assessment and Plan 76-year-old female admitted secondary to septic shock with urinary tract infection Septic shock Severe sepsis Hypotension Hypothermia Leukopenia Continue IV fluid replacement Pressors as needed to control blood pressures Follow for resolution Treat hypothermia with a warming blanket Follow temperatures Follow Leukopenia Lactic Acid Pending Urinary tract infection Recurrent urinary tract infections Continue Fortaz Follow urine cultures Previous UTI, from a previous admission, was enterococcus Hypertension history Treat hypotension presently. Hold blood pressure medications. Cirrhosis Hepatic encephalopathy Chronic anemia History of CVA (hemorrhagic) Right hemiplegia Expressive aphasia Receptive aphasia History of colon infection Headaches Osteoarthritis Compression fracture History of seizures Hypothyroidism Supportive care and monitoring of these conditions. No exacerbations of these conditions. No change to baseline treatment plan. DVT prophylaxis SCDs for now Physician Certification 2 Midnight Certification Type: Admission for Inpatient Services Order for Inpatient Services The services are ordered in accordance with Medicare regulations or non- Medicare payer requirements, as applicable. In the case of services not specified as inpatient-only, they are appropriately provided as inpatient services in accordance with the 2-midnight benchmark. Estimated LOS (days): 4 days is the estimated time the patient will need to remain in the hospital, assuming treatment plan goals are met and no additional complications. Post-Hospital Plan: Home Dio Wall MD Jun 16, 2017 14:56
[2017-06-16] MEDS ORDERED: TERBUTALINE INJ 1 MG/ML AMP SQ PRN (15:00)
[2017-06-16] MEDS ORDERED: NOREPINEPHRINE-DEXTROSE DRIP 250 ML IV PRN (15:00)
[2017-06-16] MEDS ORDERED: MAGNESIUM HYDROXIDE SUSP 30 ML CUP PO PRN (15:00)
[2017-06-16] MEDS ORDERED: ONDANSETRON HCL 4 MG/2 ML VIAL IVP PRN (15:00)
[2017-06-16] MEDS ORDERED: PILL SPLITTER OTHER PRN (17:00)
[2017-06-16] MEDS: LACTOBACILLUS ACIDOPHILUS TAB PO SCH (18:24)
[2017-06-16] MEDS ORDERED: SODIUM CHLORIDE 0.9% FLUSH 10 ML FLUSH IV FLUSH SCH (21:00)
[2017-06-16] MEDS: SODIUM CHLORIDE 0.9% FLUSH 10 ML FLUSH IV FLUSH SCH (21:00)
[2017-06-16] MEDS ORDERED: FAMOTIDINE 20 MG/2 ML VIAL IV PUSH SCH (21:00)
[2017-06-16] MEDS: FAMOTIDINE 20 MG TAB PO SCH (21:12)
[2017-06-16] MEDS: levETIRAcetam 500 MG TAB PO SCH (21:12)
[2017-06-16] MEDS: traZODone HCL 50 MG TAB PO SCH (21:12)
[2017-06-16] MEDS: BRIMONIDINE TARTRATE 0.2% OPHT SOLN 5 ML BTL EACH EYE SCH (21:13)
[2017-06-16] MEDS: levETIRAcetam 250 MG TAB PO SCH (21:13)
--- NOTE | 2017-06-16 23:42 | HHI.PR ---
Addendum to Inpatient Note Addendum Reason: Additional Documentation Additional Information Call received from RN at [id number] who states he placed patient on Levophed drip 40 minutes ago and patient still has a blood pressure of 69/36 on 12 MCG's of Levophed. Discussed case with Dr. Munson who agrees to assume care of patient and wants patient stabilized and transferred to the main ICU. I then discussed the patient with Dr. Landeros ED physician who has agreed to evaluate the patient for possible central line placement to stabilize for transfer. 0020: Discussed with Dr. Landeros who placed a central line in WIJ, he recommended another NS bolus of fluid. NS bolus given, transfer to main ICU ordered and consult to tripper was placed. Lena Balderas Jun 16, 2017 23:42
[2017-06-17] VITALS (50 sets, daily range): BP systolic 73–173; BP diastolic 34–83; PULSE 75–99; RESP 14–23; TEMP 93.7–97.5; O2SAT 94–100
[2017-06-17] MEDS ORDERED: SODIUM CHLOR 0.9% 1000 ML INJ 1,000 ML IV ONE (00:30)
--- NOTE | 2017-06-17 00:40 | RADRPT ---
EXAM DATE/TIME: 06/17/2017 00:21 [place] COMPARISON: CHEST SINGLE AP, June 16, 2017, 12:45. INDICATIONS : Post central line placement. MEDICAL HISTORY : Stroke. SURGICAL HISTORY : Fusion, lumbar. Cholecystectomy. Craniotomy. aneurysm clipping ENCOUNTER: Subsequent ACUITY: 1 day PAIN SCORE: Non-responsive. LOCATION: Bilateral chest FINDINGS: A single view of the chest demonstrates the lungs to be symmetrically aerated without evidence of mas s, infiltrate or effusion. The cardiomediastinal contours are unremarkable. Osseous structures are intact. There is right IJ central venous catheter in good position. Ventriculostomy catheters overlie the right chest wall unchanged CONCLUSION: Normal examination. Mild interstitial prominence. Right IJ central line with its tip overlying the SV C. No visible pneumothorax. Sumit Carter MD on June 17, 2017 at 0:38 Board Certified Radiologist. This report was verified electronically.
[2017-06-17] MEDS ORDERED: SODIUM CHLOR 0.9% 1000 ML INJ 1,000 ML IV SCH (02:30)
[2017-06-17] MEDS: LEVOTHYROXINE SODIUM 50 MCG TAB PO SCH (06:00)
[2017-06-17] MEDS ORDERED: CHLORHEXIDINE GLUCONATE 2 % 1 PACK (2 CLOTHS)(extra cloths) TOPICAL PRN (07:00)
[2017-06-17 08:21] LABS: AUTOMATED NEUTROPHIL # 2.1 TH/MM3 (1.8-7.7); BASOPHIL % 0.6 % (0.0-2.0); EOSINOPHIL % 1.2 % (0.0-4.0); HEMATOCRIT 26.1 % (35.0-46.0); LYMPH % 34.7 % (9.0-44.0); LYMPHOCYTE # 1.5 TH/MM3 (1.0-4.8); MEAN CELL VOLUME 95.5 FL (80.0-100.0); MEAN CORPUSCULAR HEMOGLOBIN 32.7 PG (27.0-34.0); MEAN CORPUSCULAR HGB CONC 34.3 % (32.0-36.0); MONO % 14.7 % (0.0-8.0); MONOCYTE # 0.6 TH/MM3 (0-0.9); NEUT % 48.8 % (16.0-70.0); PLATELET COUNT 80 TH/MM3 (150-450); RED BLOOD COUNT 2.73 MIL/MM3 (4.00-5.30); RED CELL DISTRIBUTION WIDTH 15.2 % (11.6-17.2); WHITE BLOOD COUNT 4.2 TH/MM3 (4.0-11.0)
[2017-06-17 08:41] LABS: ALBUMIN 2.8 GM/DL (3.4-5.0); ALT (GPT) 28 U/L (10-53); AST (GOT) 31 U/L (15-37); BICARBONATE 22.2 MEQ/L (21.0-32.0); BLOOD UREA NITROGEN 14 MG/DL (7-18); CALCIUM 8.3 MG/DL (8.5-10.1); CHLORIDE 106 MEQ/L (98-107); CREATININE 0.88 MG/DL (0.50-1.00); GLOMERULAR FILTRATION RATE 62 ML/MIN (>89); GLUCOSE,RANDOM 105 MG/DL (74-106); SODIUM (NA) 137 MEQ/L (136-145)
[2017-06-17 08:43] LABS: ALKALINE PHOSPHATASE 84 U/L (45-117); TOTAL BILIRUBIN ADULT 0.4 MG/DL (0.2-1.0); TOTAL PROTEIN 6.2 GM/DL (6.4-8.2)
[2017-06-17] MEDS: BRIMONIDINE TARTRATE 0.2% OPHT SOLN 5 ML BTL EACH EYE SCH ×2 (09:00→21:00)
[2017-06-17] MEDS: levETIRAcetam 250 MG TAB PO SCH ×2 (09:00→19:51)
[2017-06-17] MEDS: SODIUM CHLORIDE 0.9% FLUSH 10 ML FLUSH IV FLUSH SCH ×2 (09:00→19:40)
[2017-06-17] MEDS: FLUTICASONE PROPIONATE 50 MCG/ACT 16 GM NASAL SPRAY EACH NARE SCH (09:00)
[2017-06-17] MEDS: levETIRAcetam 500 MG TAB PO SCH ×2 (09:07→19:41)
[2017-06-17] MEDS: FAMOTIDINE 20 MG TAB PO SCH ×2 (09:07→19:41)
[2017-06-17] MEDS: LACTOBACILLUS ACIDOPHILUS TAB PO SCH ×3 (09:07→18:00)
--- NOTE | 2017-06-17 09:33 | PD.CONS ---
History of Present Illness Service Infectious disease Consult Requested By Dr Yuly Martin Reason for Consult Evaluate patient with sepsis and UTI Primary Care Physician Obey Hill Do, MD Diagnoses: History of Present Illness Patient seen and examined. Records reviewed. History obtained from patient's Patient is a 76-year-old female, brought into the hospital for hypotension. Patient has a history of hypertension, that is controlled with lisinopril. Her blood pressure usually runs in the 120s, but apparently recently in the afternoon and is been running on the high side. A hasn't been checking the blood pressure twice a day, and usually in the afternoon it's higher than 120, and can be up to 150. The last 10 days it has been running lower than 150, but still within the normal range. On the day of admission, the checked it in the morning and it was in the 70s. She was noted to be lethargic at that time, and so patient was taken to the hospital for further evaluation and treatment. apparently has noted some sluggishness in the patient, and he was supposed to have her follow-up with her neurosurgeon. 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 Patient also has had problem with recurrent bladder infection, and has been referred to Dr. Nuñez for ID evaluation. She has been evaluated by a urologist in the past, and has been known to have incomplete emptying of her bladder. The last time she was seen by the urologist was about 3 years ago. There is been no respiratory complaint. There's been no nausea or vomiting or any diarrhea. In the ED patient was found to be hypotensive. She was given fluid bolus. She is now in the ICU and infectious disease consultation has been requested to evaluate the patient. She is afebrile. Her WBC was initially low at 3.5. Chest x-ray is unremarkable. She had a Arenas placed in the ED and they got 600 mL on initial insertion. Due to her aphasia , and it has been difficult for the to determine if she has any significant complaint. Review of Systems ROS Limitations: Clinical Condition, Speech Impaired, Other (has aphasia) Constitutional: COMPLAINS OF: Fatigue, DENIES: Fever, Chills Respiratory: DENIES: Cough Gastrointestinal: DENIES: Diarrhea, Vomiting Integumentary: DENIES: Rash Past Family Social History Allergies: Coded Allergies: amoxicillin (Verified Adverse Reaction, Severe, DISORIENTED, 06/17/17) ceftriaxone (Verified Adverse Reaction, Intermediate, DISORIENTED, 06/17/17 ) ciprofloxacin (Unverified Adverse Reaction, Unknown, DISORIENTED, 06/17/17) LOW GRADE FEVER AND DISORIENTATION levofloxacin (Unverified Adverse Reaction, Unknown, DISORIENTED, 06/17/17) LOW GRADE FEVER, DISORIENTATION Past Medical History Cirrhosis Hepatic encephalopathy Chronic anemia Hypertension History of CVA (hemorrhagic) Right hemiplegia Aphasia History of colon infection Recurrent urinary tract infections Headaches Osteoarthritis Compression fracture History of seizures Hypothyroidism Past Surgical History Shunt and brain 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 Bilateral cataract surgery Insulin pump Right breast cyst removal 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 SERVICES 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, last revision Feb 2017 Active Ordered Medications Current Medications Medications (Trade) Dose Ordered Sig/Do Route Start Time Stop Time Status Last Admin Sodium Chloride 1,000 ml @ 150 mls/hr Q6H40M IV 06/16/17 14:35 06/16/17 21:15 (Zofran Inj) 4 mg Q6H PRN IVP 06/16/17 15:00 (Narcan Inj) 0.4 mg UNSCH PRN IV PUSH 06/16/17 14:45 (Milk Of Magnesia Liq) 30 ml Q12H PRN PO 06/16/17 15:00 (Fortaz Inj) 1,000 mg Q12H IM 06/17/17 02:00 06/17/17 04:21 (Lactinex) 1 tab TID PO 06/16/17 18:00 06/17/17 09:07 (NS Flush) 2 ml UNSCH PRN IV FLUSH 06/16/17 15:00 (NS Flush) 2 ml BID IV FLUSH 06/16/17 21:00 06/16/17 21:00 (Pepcid) 10 mg Q12HR PO 06/16/17 21:00 06/17/17 09:07 Norepinephrine Bitartrate 250 ml @ 7.5 mls/hr TITRATE PRN IV 06/16/17 15:00 06/16/17 22:20 (Brethine Inj) 1 mg UNSCH PRN SQ 06/16/17 15:00 (Alphagan 0.2% Opth Soln) 1 drop BID EACH EYE 06/16/17 21:00 06/16/17 21:13 (Flonase Olievr Spr) 1 spray DAILY EACH NARE 3/31/18 09:00 (Keppra) 500 mg BID PO 06/16/17 21:00 06/17/17 09:07 (Synthroid) 50 mcg DAILY@0600 PO 06/17/17 06:00 (Desyrel) 25 mg HS PO 06/16/17 21:00 06/16/17 21:12 (Keppra) 250 mg BID PO 06/16/17 21:00 06/16/17 21:13 (Pill Splitter) 1 ea UNSCH PRN OTHER 06/16/17 17:00 (Pneumovax-23 Inj) 25 mcg ONCE ONCE IM 06/17/17 10:00 06/17/17 10:01 Miscellaneous Information Patient in critical care unit? Ass... [id number] .XX 06/17/17 07:00 (Chlorhexidine 2% Cloth) 3 pack DAILY@04 TOPICAL 06/18/17 04:00 06/22/17 04:01 (Chlorhexidine 2% Cloth) 3 pack UNSCH PRN TOPICAL 06/17/17 07:00 06/22/17 06:48 Family History Unable to obtain Social History Ex alcohol use No smoking NO illicit drugs Physical Exam Vital Signs Vital Signs Date Time Temp Pulse Resp B/P (MAP) Pulse Ox O2 Delivery O2 Flow Rate FiO2 06/17/17 08:01 97.4 90 16 150/67 (94) 98 06/17/17 08:00 97.4 90 16 150/78 (102) 97 06/17/17 08:00 91 06/17/17 06:36 85 154/71 06/17/17 06:00 84 14 154/71 (98) 96 06/17/17 06:00 85 06/17/17 05:31 96.5 90 139/62 (87) 06/17/17 05:21 88 134/59 (84) 06/17/17 05:11 84 140/61 (87) 06/17/17 05:01 84 141/54 (83) 06/17/17 04:51 82 135/57 (83) 06/17/17 04:41 80 137/64 (88) 06/17/17 04:31 86 143/81 (101) 06/17/17 04:21 80 129/62 (84) 06/17/17 04:11 82 104/59 (74) 06/17/17 04:01 97.1 82 101/42 (61) 06/17/17 04:00 82 06/17/17 03:51 82 115/47 (69) 06/17/17 03:41 82 101/45 (63) 06/17/17 03:31 84 104/45 (64) 06/17/17 03:21 84 114/43 (66) 06/17/17 03:11 88 119/53 (75) 06/17/17 03:01 88 125/56 (79) 06/17/17 02:41 96 119/56 (77) 06/17/17 02:31 90 95/38 (57) 95 06/17/17 02:21 88 90/36 (54) 94 06/17/17 02:10 86 82/41 (55) 94 06/17/17 02:09 86 81/36 (51) 94 06/17/17 02:01 88 06/17/17 02:00 88 73/63 (66) 95 06/17/17 01:50 97.5 90 100/44 (62) 95 06/17/17 01:40 90 102/37 (58) 95 06/17/17 01:30 88 96/37 (56) 95 06/17/17 01:20 88 91/39 (56) 95 06/17/17 01:10 88 86/35 (52) 95 06/17/17 01:00 88 91/34 (53) 95 06/17/17 00:50 86 85/34 (51) 95 06/17/17 00:45 86 95 06/17/17 00:40 86 82/35 (51) 95 06/17/17 00:30 86 93/40 (57) 95 06/17/17 00:20 86 87/36 (53) 95 06/17/17 00:10 90 96/48 (64) 96 06/17/17 00:03 87 06/17/17 00:00 86 89/45 (60) 96 06/16/17 23:57 84 82/46 (58) 96 06/16/17 23:50 86 73/37 (49) 95 06/16/17 23:44 82 76/34 (48) 96 3/30/18 23:40 82 67/30 (42) 95 18 23:37 80 72/34 (47) 95 06/16/17 23:30 80 61/32 (42) 96 06/16/17 23:20 80 62/29 (40) 95 18 23:15 80 65/29 (41) 95 06/16/17 23:10 80 69/36 (47) 95 18 23:03 80 63/32 (42) 96 06/16/17 23:00 82 63/32 (42) 96 18 22:58 97.2 80 63/31 (42) 96 18 22:49 82 67/30 (42) 96 06/16/17 22:44 82 61/31 (41) 96 06/16/17 22:43 82 61/31 18 22:39 82 62/37 06/16/17 22:38 82 66/30 (42) 96 06/16/17 22:35 84 65/34 (44) 96 06/16/17 22:30 84 66/37 (47) 96 18 22:27 82 63/32 (42) 96 06/16/17 22:20 82 71/33 (46) 96 06/16/17 22:20 82 71/33 06/16/17 22:15 82 77/37 (50) 95 06/16/17 22:11 82 66/28 (41) 95 06/16/17 22:07 82 06/16/17 22:00 86 84/32 (49) 96 06/16/17 21:00 96.2 78 110/86 (94) 98 18 20:00 70 90/39 (56) 98 18 20:00 82 06/16/17 19:00 82 124/59 (80) 99 06/16/17 18:00 67 06/16/17 18:00 66 118/64 (82) 97 06/16/17 17:00 93.5 64 108/52 (70) 97 06/16/17 16:00 60 101/43 (62) 96 18 16:00 60 101/43 (62) 96 18 15:52 62 114/43 (66) 99 3/30/18 15:52 62 114/43 (66) 99 06/16/17 15:11 115/52 (73) 06/16/17 15:11 92.5 115/52 (73) 06/16/17 15:09 133/62 (85) 06/16/17 14:56 06/16/17 14:35 56 17 102/52 (69) 99 Room Air 06/16/17 13:36 63 18 80/43 (55) 97 06/16/17 13:05 94.5 61 18 84/38 (53) 97 Room Air 06/16/17 12:35 92.2 06/16/17 12:26 62 18 73/37 (49) 97 Physical Exam GENERAL: Patient is a well-nourished, well-developed female, awake and alert, not in respiratory distress. Has aphasia SKIN: Cool and dry. No generalized rash, no ecchymoses and no evidence of embolic lesions. HEAD: Has scars on her scalp, has an indentation on her L frontal region EYES: [place] conjunctiva. No petechia or hemorrhage. Pupils equal, round and reactive to light. Extraocular movements full and intact. No scleral icterus. No injection or drainage. EARS, NOSE AND THROAT: Nose without bleeding or purulent nasal discharge. No sinus tenderness. Mucous membranes pink and moist. No oral lesions noted. No exudate. No oral thrush. NECK: Trachea midline. Supple and not tender, no meningeal signs CARDIOVASCULAR: Regular rate and rhythm. No murmurs, rubs or gallops heard RESPIRATORY: Clear to auscultation. Breath sounds equal bilaterally. No rales , wheezing or rhonchi ABDOMEN: Soft, non-tender, nondistended. Bowel sounds present and normoactive. No guarding. No rebound. No organomegaly. EXTREMITIES: No clubbing, cyanosis, or edema.No joint effusion, has good ROM. No calf tenderness. Well perfused and warm. NEUROLOGICAL: Awake, ,has aphasia. Weak in R. Good strength on L side. PSYCHIATRIC: calm and cooperative. LINE: No evidence of infection : Arenas in place, urine looks clear Laboratory Laboratory Tests Test 06/16/17 12:15 06/16/17 13:34 06/16/17 17:10 06/17/17 06:30 White Blood Count 3.5 Red Blood Count 2.79 Hemoglobin 8.9 Hematocrit 26.4 Mean Corpuscular Volume 94.5 Mean Corpuscular Hemoglobin 31.7 Mean Corpuscular Hemoglobin Concent 33.6 Red Cell Distribution Width 14.4 Platelet Count 95 Mean Platelet Volume 7.7 Neutrophils (%) (Auto) 37.8 Lymphocytes (%) (Auto) 43.2 Monocytes (%) (Auto) 14.7 Eosinophils (%) (Auto) 2.5 Basophils (%) (Auto) 1.8 Neutrophils # (Auto) 1.3 Lymphocytes # (Auto) 1.5 Monocytes # (Auto) 0.5 Eosinophils # (Auto) 0.1 Basophils # (Auto) 0.1 CBC Comment AUTO DIFF Differential Comment AUTO DIFF CONFIRMED Platelet Estimate LOW Platelet Morphology Comment NORMAL Prothrombin Time 10.1 Prothromb Time International Ratio 1.0 Activated Partial Thromboplast Time 27.2 Blood Urea Nitrogen 21 Creatinine 1.10 Random Glucose 106 Total Protein 6.6 Albumin 3.0 Calcium Level 9.0 Alkaline Phosphatase 91 Aspartate Amino Transf (AST/SGOT) 30 Alanine Aminotransferase (ALT/SGPT) 28 Total Bilirubin 0.4 Sodium Level 131 Potassium Level 4.2 Chloride Level 97 Carbon Dioxide Level 26.1 Anion Gap 8 Estimat Glomerular Filtration Rate 48 Urine Collection Type CATH Urine Color YELLOW Urine Turbidity SL CLOUDY Urine pH 6.5 Urine Specific [place] LESS/EQUAL 1.005 Urine Protein NEG Urine Glucose (UA) NEG Urine Ketones NEG Urine Occult Blood TRACE Urine Nitrite NEG Urine Bilirubin NEG Urine Urobilinogen 0.2 Urine Leukocyte Esterase LARGE Urine RBC 4-9 Urine WBC 100-200 Urine WBC Clumps MOD Urine Bacteria MANY Microscopic Urinalysis Comment CATH-CULTURE IND Urine Collection Time 13:34 Lactic Acid Level 0.7 Test 06/17/17 07:38 White Blood Count 4.2 Red Blood Count 2.73 Hemoglobin 9.0 Hematocrit 26.1 Mean Corpuscular Volume 95.5 Mean Corpuscular Hemoglobin 32.7 Mean Corpuscular Hemoglobin Concent 34.3 Red Cell Distribution Width 15.2 Platelet Count 80 Mean Platelet Volume 8.0 Neutrophils (%) (Auto) 48.8 Lymphocytes (%) (Auto) 34.7 Monocytes (%) (Auto) 14.7 Eosinophils (%) (Auto) 1.2 Basophils (%) (Auto) 0.6 Neutrophils # (Auto) 2.1 Lymphocytes # (Auto) 1.5 Monocytes # (Auto) 0.6 Eosinophils # (Auto) 0.0 Basophils # (Auto) 0.0 CBC Comment AUTO DIFF Blood Urea Nitrogen 14 Creatinine 0.88 Random Glucose 105 Total Protein 6.2 Albumin 2.8 Calcium Level 8.3 Alkaline Phosphatase 84 Aspartate Amino Transf (AST/SGOT) 31 Alanine Aminotransferase (ALT/SGPT) 28 Total Bilirubin 0.4 Sodium Level 137 Potassium Level 4.4 Chloride Level 106 Carbon Dioxide Level 22.2 Anion Gap 9 Estimat Glomerular Filtration Rate 62 Date/Time Source Procedure Growth Status 06/16/17 14:30 Blood Peripheral Aerobic Blood Culture Pending Received 06/16/17 14:30 Blood Peripheral Anaerobic Blood Culture Pending Received 06/16/17 13:34 Urine Catheterized Urine Urine Culture Pending Received Result Diagram: 06/17/17 0738 06/17/17 0738 Imaging RADIOLOGY STUDIES/FILMS REVIEWED Last Impressions Chest X-Ray 06/17/17 0000 Signed Impressions: Service Date/Time: Saturday, June 17, 2017 00:21 - CONCLUSION: Normal examination. Mild interstitial prominence. Right IJ central line with its tip overlying the SVC. No visible pneumothorax. 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
[2017-06-17] MEDS ORDERED: PNEUMOCOCCAL POLYVALENT INJ 25 MCG/0.5 ML SYR IM ONE (10:00)
--- NOTE | 2017-06-17 12:14 | RADRPT ---
EXAM DATE/TIME: 06/17/2017 10:49 [place] COMPARISON: No previous studies available for comparison. EXTERNAL COMPARISON : [facility], US RENAL DOPPLER, December 01, 2015 INDICATIONS : Hydronephrosis. MEDICAL HISTORY : Hypercholesterolemia. Hypertension. Arthritis. CVA. Aphasia. SURGICAL HISTORY : Cholecystectomy. Cataract surgery. Craniotomy. MANAGEMENT AIDE shunt. ENCOUNTER: Initial ACUITY: 1 day PAIN SCORE: 0/10 LOCATION: Bilateral flank MEASUREMENTS: RIGHT KIDNEY: 8.1 x 4.7 x 4.5 cm LEFT KIDNEY: 8.0 x 3.9 x 1.1 cm FINDINGS: Small echogenic kidneys characteristic of medical renal disease. No hydronephrosis. Bladder decompres sed by Arenas. No discrete mass identified. CONCLUSION: 1. Small echogenic kidneys characteristic of medical renal disease. No acute findings. Da Raymundo MD on June 17, 2017 at 12:11 Board Certified Radiologist. This report was verified electronically.
[2017-06-17] MEDS: CEFEPIME INJ 2,000 MG in SODIUM CHLORIDE 0.9% INJ 100 ML IV SCH ×2 (13:24→23:00)
--- NOTE | 2017-06-17 14:43 | EKG ---
Date Performed: 06/16/2017 Time Performed: 12:39:17 PTAGE: 76 years EKG: Sinus rhythm WITH FIRST DEGREE AV BLOCK ABNORMAL ECG Since PREVIOUS TRACING , no significant change noted PREVIOUS TRACIN07/02/2014 03.25 DOCTOR: Joe Nunes Interpretating Date/Time 06/17/2017 14:42:30
--- NOTE | 2017-06-17 15:54 | PD.CONS ---
[facility] Service Critical Care Medicine Consult Requested By SHARRON Reason for Consult Sepsis, hypotension Primary Care Physician Obey Hill Do, MD History of Present Illness History of Present Illness Mrs. Kiran is a 76 year old female. At baseline she has expressive and receptive aphasia. She can provide no history. She has brought in secondary to low blood pressures at home. She is found to have urinary tract infection. Temperature is a little. Blood pressure is low. White blood cell count is suppressed. She meets criteria for septic shock. Lactic acid is pending. A review of her past hospital visit shows no previous history of chronic hypothermia, chronic hypotension, or chronic leukopenia. No other complaints at this time. 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 Bilateral cataract surgery Insulin pump Right breast cyst removal Reported Medications Reported Meds & Active Scripts Active Reported Lactulose Liq (Lactulose) 10 Gm/15 Ml Soln 15 Ml PO Q8HR PRN Thermotabs (Oral Electrolytes) 287 Mg-180 Mg-15 Mg Tab 1 Tab PO DAILY Levothyroxine (Levothyroxine Sodium) 50 Mcg Tab 50 Mcg PO DAILY Claritin (Loratadine) 10 Mg Cap 10 Mg PO DAILY Brimonidine Opth Drops (Brimonidine Tartrate) 0.2% Soln 1 Drop EACH EYE BID Calcium Citrate-Vitamin D 315-200 Mg-Unit Tab 1 Tab PO BID Fluticasone Nasal [place] 50 Mcg/Act Naspr 100 Mcg EACH NARE DAILY 50 mcg/spray Spironolactone 25 Mg Tab 25 Mg PO DAILY Omeprazole 10 Mg Cap 20 Mg PO DAILY Lisinopril 20 Mg Tab 10 Mg PO BID Keppra (Levetiracetam) 500 Mg Tab 750 Mg PO BID Trazodone (Trazodone HCl) 50 Mg Tab 25 Mg PO HS Allergies: Coded Allergies: amoxicillin (Verified Allergy, Severe, DISORIENTED, 06/16/17) ceftriaxone (Verified Allergy, Severe, DISORIENTED, 06/16/17) ciprofloxacin (Unverified Allergy, Unknown, DISORIENTED, 06/16/17) LOW GRADE FEVER AND DISORIENTATION levofloxacin (Unverified Allergy, Unknown, DISORIENTED, 06/16/17) LOW GRADE FEVER, DISORIENTATION Active Ordered Medications Administered Medications Medications (Trade) Dose Ordered Sig/Do Route PRN Reason Start Time Stop Time Status Last Admin Dose Admin Sodium Chloride 1,000 ml @ 150 mls/hr Q6H40M IV 06/16/17 14:35 06/16/17 21:15 Lactobacillus Acidophilus (Lactinex) 1 tab TID PO 06/16/17 18:00 06/17/17 13:24 Sodium Chloride (NS Flush) 2 ml BID IV FLUSH 06/16/17 21:00 06/17/17 09:00 Famotidine (Pepcid) 10 mg Q12HR PO 06/16/17 21:00 06/17/17 09:07 Norepinephrine Bitartrate 250 ml @ 7.5 mls/hr TITRATE PRN IV Blood pressure management 06/16/17 15:00 06/16/17 22:20 Brimonidine Tartrate (Alphagan 0.2% Opt Sol) 1 drop BID EACH EYE 06/16/17 21:00 06/16/17 21:13 Levetriacetam (Keppra) 500 mg BID PO 06/16/17 21:00 06/17/17 09:07 Trazodone HCl (Desyrel) 25 mg HS PO 06/16/17 21:00 06/16/17 21:12 Levetriacetam (Keppra) 250 mg BID PO 06/16/17 21:00 06/17/17 09:00 Cefepime HCl 2000 mg/Sodium Chloride 100 ml @ 200 mls/hr Q12H IV 06/17/17 11:00 06/17/17 13:24 Family History Unable to obtain. Social History Alcohol Use: No (FORMER) Tobacco Use: No Substance Use: No Physical Exam Vital Signs Vital Signs Date Time Temp Pulse Resp B/P (MAP) Pulse Ox O2 Delivery O2 Flow Rate FiO2 06/17/17 12:00 90 06/17/17 10:00 91 06/17/17 08:01 97.4 90 16 150/67 (94) 98 06/17/17 08:00 97.4 90 16 150/78 (102) 97 06/17/17 08:00 91 06/17/17 06:36 85 154/71 06/17/17 06:00 84 14 154/71 (98) 96 06/17/17 06:00 85 06/17/17 05:31 96.5 90 139/62 (87) 06/17/17 05:21 88 134/59 (84) 06/17/17 05:11 84 140/61 (87) 06/17/17 05:01 84 141/54 (83) 06/17/17 04:51 82 135/57 (83) 06/17/17 04:41 80 137/64 (88) 06/17/17 04:31 86 143/81 (101) 06/17/17 04:21 80 129/62 (84) 06/17/17 04:11 82 104/59 (74) 06/17/17 04:01 97.1 82 101/42 (61) 06/17/17 04:00 82 06/17/17 03:51 82 115/47 (69) 06/17/17 03:41 82 101/45 (63) 06/17/17 03:31 84 104/45 (64) 06/17/17 03:21 84 114/43 (66) 06/17/17 03:11 88 119/53 (75) 06/17/17 03:01 88 125/56 (79) 06/17/17 02:41 96 119/56 (77) 06/17/17 02:31 90 95/38 (57) 95 06/17/17 02:21 88 90/36 (54) 94 06/17/17 02:10 86 82/41 (55) 94 06/17/17 02:09 86 81/36 (51) 94 06/17/17 02:01 88 06/17/17 02:00 88 73/63 (66) 95 06/17/17 01:50 97.5 90 100/44 (62) 95 06/17/17 01:40 90 102/37 (58) 95 06/17/17 01:30 88 96/37 (56) 95 06/17/17 01:20 88 91/39 (56) 95 06/17/17 01:10 88 86/35 (52) 95 06/17/17 01:00 88 91/34 (53) 95 06/17/17 00:50 86 85/34 (51) 95 06/17/17 00:45 86 95 06/17/17 00:40 86 82/35 (51) 95 06/17/17 00:30 86 93/40 (57) 95 06/17/17 00:20 86 87/36 (53) 95 06/17/17 00:10 90 96/48 (64) 96 06/17/17 00:03 87 06/17/17 00:00 86 89/45 (60) 96 06/16/17 23:57 84 82/46 (58) 96 06/16/17 23:50 86 73/37 (49) 95 06/16/17 23:44 82 76/34 (48) 96 06/16/17 23:40 82 67/30 (42) 95 06/16/17 23:37 80 72/34 (47) 95 06/16/17 23:30 80 61/32 (42) 96 06/16/17 23:20 80 62/29 (40) 95 06/16/17 23:15 80 65/29 (41) 95 06/16/17 23:10 80 69/36 (47) 95 06/16/17 23:03 80 63/32 (42) 96 06/16/17 23:00 82 63/32 (42) 96 06/16/17 22:58 97.2 80 63/31 (42) 96 06/16/17 22:49 82 67/30 (42) 96 06/16/17 22:44 82 61/31 (41) 96 06/16/17 22:43 82 61/31 06/16/17 22:39 82 62/37 06/16/17 22:38 82 66/30 (42) 96 06/16/17 22:35 84 65/34 (44) 96 06/16/17 22:30 84 66/37 (47) 96 06/16/17 22:27 82 63/32 (42) 96 06/16/17 22:20 82 71/33 (46) 96 06/16/17 22:20 82 71/33 06/16/17 22:15 82 77/37 (50) 95 06/16/17 22:11 82 66/28 (41) 95 06/16/17 22:07 82 06/16/17 22:00 86 84/32 (49) 96 06/16/17 21:00 96.2 78 110/86 (94) 98 06/16/17 20:00 70 90/39 (56) 98 06/16/17 20:00 82 06/16/17 19:00 82 124/59 (80) 99 06/16/17 18:00 67 06/16/17 18:00 66 118/64 (82) 97 06/16/17 17:00 93.5 64 108/52 (70) 97 06/16/17 16:00 60 101/43 (62) 96 06/16/17 16:00 60 101/43 (62) 96 06/16/17 15:52 62 114/43 (66) 99 06/16/17 15:52 62 114/43 (66) 99 Physical Exam HEENT/Neuro: No pallor or icterus, tongue moist, [place], Awake alert, speech disturbance which is chronic, right hemiparesis. Neck: No JVD Chest/pulmonary: CTA bilaterally Cardiovascular: S1-S2 regular no gallop or murmur GI/abdomen: Soft, nontender, bowel sounds present Extremities: Warm bilaterally, trace edema Laboratory Laboratory Tests Test 06/16/17 17:10 06/17/17 06:30 06/17/17 07:38 Lactic Acid Level 0.7 Nasal Screen MRSA (PCR) MRSA NOT DETECTED White Blood Count 4.2 Red Blood Count 2.73 Hemoglobin 9.0 Hematocrit 26.1 Mean Corpuscular Volume 95.5 Mean Corpuscular Hemoglobin 32.7 Mean Corpuscular Hemoglobin Concent 34.3 Red Cell Distribution Width 15.2 Platelet Count 80 Mean Platelet Volume 8.0 Neutrophils (%) (Auto) 48.8 Lymphocytes (%) (Auto) 34.7 Monocytes (%) (Auto) 14.7 Eosinophils (%) (Auto) 1.2 Basophils (%) (Auto) 0.6 Neutrophils # (Auto) 2.1 Lymphocytes # (Auto) 1.5 Monocytes # (Auto) 0.6 Eosinophils # (Auto) 0.0 Basophils # (Auto) 0.0 CBC Comment AUTO DIFF Differential Comment AUTO DIFF CONFIRMED Platelet Estimate LOW Platelet Morphology Comment NORMAL Blood Urea Nitrogen 14 Creatinine 0.88 Random Glucose 105 Total Protein 6.2 Albumin 2.8 Calcium Level 8.3 Alkaline Phosphatase 84 Aspartate Amino Transf (AST/SGOT) 31 Alanine Aminotransferase (ALT/SGPT) 28 Total Bilirubin 0.4 Sodium Level 137 Potassium Level 4.4 Chloride Level 106 Carbon Dioxide Level 22.2 Anion Gap 9 Estimat Glomerular Filtration Rate 62 Date/Time Source Procedure Growth Status 06/17/17 12:14 Blood Peripheral Aerobic Blood Culture Pending Received 06/17/17 12:14 Blood Peripheral Anaerobic Blood Culture Pending Received 06/16/17 13:34 Urine Catheterized Urine Urine Culture - Preliminary Gram Negative Yandel Resulted Result Diagram: 06/17/17 0738 06/17/17 0738 Imaging Last Impressions Renal Ultrasound 06/17/17 0000 Signed Impressions: Service Date/Time: Saturday, June 17, 2017 10:49 - CONCLUSION: 1. Small echogenic kidneys characteristic of medical renal disease. No acute findings. Da Raymundo MD Chest X-Ray 06/17/17 0000 Signed Impressions: Service Date/Time: Saturday, June 17, 2017 00:21 - CONCLUSION: Normal examination. Mild interstitial prominence. Right IJ central line with its tip overlying the SVC. No visible pneumothorax. 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 -Empiric antibiotic coverage. ID consulted in view of recurrent UTIs for further evaluation - Continue Keppra - DVT prophylaxis with cutaneous heparin. Transfer to hospitalist tomorrow service for further medical management if patient remains off Levophed Discussed with patient's at bedside in detail. Discussed with Ismael Casanova MD Jun 17, 2017 15:54
[2017-06-17] MEDS ORDERED: PADIMATE (CHAPSTICK) 4.5 GM TUBE TOPICAL PRN (18:30)
[2017-06-17] MEDS: traZODone HCL 50 MG TAB PO SCH (19:40)
[2017-06-17] MEDS: SODIUM CHLOR 0.9% 1000 ML INJ 1,000 ML IV SCH ×2 (19:52→23:47)
[2017-06-18] VITALS (15 sets, daily range): BP systolic 151–178; BP diastolic 68–85; PULSE 93–103; RESP 17–19; TEMP 98; O2SAT 88–97
[2017-06-18] MEDS: CHLORHEXIDINE GLUCONATE 2 % 1 PACK (2 CLOTHS)(taper/protocol) TOPICAL SCH (04:00)
[2017-06-18] MEDS: SODIUM CHLOR 0.9% 1000 ML INJ 1,000 ML IV SCH ×3 (05:26→19:55)
[2017-06-18] MEDS: LEVOTHYROXINE SODIUM 50 MCG TAB PO SCH (06:00)
[2017-06-18] MEDS: levETIRAcetam 250 MG TAB PO SCH ×2 (08:37→21:00)
[2017-06-18] MEDS: levETIRAcetam 500 MG TAB PO SCH ×2 (08:37→21:00)
[2017-06-18] MEDS: FAMOTIDINE 20 MG TAB PO SCH ×2 (08:38→21:00)
[2017-06-18] MEDS: LACTOBACILLUS ACIDOPHILUS TAB PO SCH ×3 (08:38→18:00)
[2017-06-18] MEDS: SODIUM CHLORIDE 0.9% FLUSH 10 ML FLUSH IV FLUSH SCH ×2 (09:00→21:00)
[2017-06-18] MEDS: FLUTICASONE PROPIONATE 50 MCG/ACT 16 GM NASAL SPRAY EACH NARE SCH (09:00)
--- NOTE | 2017-06-18 09:10 | HHI.PR ---
Subjective Remarks In bed appears in nad. Smiles, answers all questions with no, mentation however at baseline. No events overnight. Discussed with ICU nurse VS reviewed. Patient with hypothermia, on warming blanket, temp stable. Arenas wit clear urine, fairly well OP Objective Vitals Vital Signs Date Time Temp Pulse Resp B/P (MAP) Pulse Ox O2 Delivery O2 Flow Rate FiO2 06/18/17 06:00 103 06/18/17 04:00 102 06/18/17 04:00 98.4 100 17 158/72 (100) 94 06/18/17 02:00 100 06/18/17 00:00 101 06/18/17 00:00 97.7 100 17 151/68 (95) 96 06/17/17 22:00 99 06/17/17 20:00 96 06/17/17 20:00 97.3 99 23 168/73 (104) 100 06/17/17 20:00 100 Nasal Cannula 2.00 06/17/17 18:00 90 06/17/17 18:00 96.4 88 16 173/83 (113) 98 06/17/17 17:01 94.7 75 16 166/77 (106) 98 06/17/17 16:00 90 06/17/17 14:00 90 06/17/17 14:00 94.7 75 16 148/77 (100) 98 06/17/17 13:00 93.7 75 16 158/77 (104) 98 06/17/17 12:00 90 06/17/17 12:00 94.0 88 16 162/77 (105) 98 06/17/17 10:00 91 I/O 06/17/17 06/17/17 06/17/17 06/18/17 06/18/17 06/18/17 07:00 15:00 23:00 07:00 15:00 23:00 Intake Total 1000 ml 250 ml 3160 ml 350 ml Output Total 175 ml 2800 ml 1350 ml Balance 825 ml 250 ml 360 ml -1000 ml Intake Oral 1160 ml 250 ml IV Total 1000 ml 250 ml 2000 ml 100 ml Output Urine Total 175 ml 2800 ml 1350 ml # Bowel Movements 2 0 Result Diagram: 06/17/17 0738 06/17/1738 Imaging Last Impressions Renal Ultrasound 06/17/17 0000 Signed Impressions: Service Date/Time: Saturday, June 17, 2017 10:49 - CONCLUSION: 1. Small echogenic kidneys characteristic of medical renal disease. No acute findings. Da Raymundo MD Chest X-Ray 06/17/17 0000 Signed Impressions: Service Date/Time: Saturday, June 17, 2017 00:21 - CONCLUSION: Normal examination. Mild interstitial prominence. Right IJ central line with its tip overlying the SVC. No visible pneumothorax. Sumit Carter MD Objective Remarks GENERAL: 76 yo female, in bed, chronically ill, doesn't appear in acute distress. CARDIOVASCULAR: Regular rate and rhythm. RESPIRATORY: No accessory muscle use. Clear to auscultation. Breath sounds equal bilaterally. GASTROINTESTINAL: Abdomen soft, non-tender, nondistended. Hepatic and splenic margins not palpable. MUSCULOSKELETAL: Extremities without clubbing, cyanosis, or edema. No obvious deformities. NEUROLOGICAL: Awake and alert. Doesn't follow commands. Responding to questions with no, smiles. A/P Problem List: (1) Hypotension ICD Code: I95.9 - Hypotension, unspecified (2) UTI (urinary tract infection) ICD Code: N39.0 - Urinary tract infection, site not specified (3) Septic shock ICD Code: A41.9 - Sepsis, unspecified organism; R65.21 - Severe sepsis with septic shock (4) Severe sepsis ICD Code: A41.9 - Sepsis, unspecified organism; R65.20 - Severe sepsis without septic shock Status: Acute (5) Pancytopenia ICD Code: D61.818 - Other pancytopenia Status: Acute Assessment and Plan UTI Sepsis Hypotension Cirrhosis Anemia of chronic disease History of recurrent UTIs Right hemiparesis History of PROGRESS CLERK shunt Fluid resuscitation Was on Levophed for pressor support, now off Levophed and BP is stable However noted with hypothermia yesterday on warming blanket. Empiric antibiotic coverage. ID consulted in view of recurrent UTIs for further evaluation, Dr Whyte is ff appreciate recommendations. Continue Keppra DVT prophylaxis with cutaneous heparin. Discussed with ICU nurse Katherine Lehman MD Jun 18, 2017 09:10
[2017-06-18] MEDS: CEFEPIME INJ 2,000 MG in SODIUM CHLORIDE 0.9% INJ 100 ML IV SCH ×2 (11:00→23:00)
[2017-06-18] MEDS: traZODone HCL 50 MG TAB PO SCH (21:00)
[2017-06-18] MEDS: BRIMONIDINE TARTRATE 0.2% OPHT SOLN 5 ML BTL EACH EYE SCH (21:00)
[2017-06-18] MEDS: RESP: ALBUTEROL 2.5 MG/IPRATROPIUM 0.5 MG NEB (PRN) NEB (21:39)
[2017-06-19] VITALS (17 sets, daily range): BP systolic 134–183; BP diastolic 72–116; PULSE 96–122; RESP 24–32; TEMP 98.8–99.8; O2SAT 94–100
[2017-06-19] MEDS: CHLORHEXIDINE GLUCONATE 2 % 1 PACK (2 CLOTHS)(taper/protocol) TOPICAL SCH (00:13)
[2017-06-19] MEDS ORDERED: FUROSEMIDE 20 MG/2 ML VIAL IV PUSH ONE (00:15)
[2017-06-19] MEDS ORDERED: LORazepam 2 MG/ML VIAL IV PUSH ONE ×2 (00:15→12:00)
[2017-06-19] MEDS: SODIUM CHLOR 0.9% 1000 ML INJ 1,000 ML IV SCH ×2 (02:35→09:15)
[2017-06-19] MEDS: LEVOTHYROXINE SODIUM 50 MCG TAB PO SCH (05:19)
[2017-06-19] MEDS: LACTOBACILLUS ACIDOPHILUS TAB PO SCH ×3 (09:00→17:35)
[2017-06-19] MEDS: FLUTICASONE PROPIONATE 50 MCG/ACT 16 GM NASAL SPRAY EACH NARE SCH (09:00)
[2017-06-19] MEDS: FAMOTIDINE 20 MG TAB PO SCH ×2 (09:00→21:00)
[2017-06-19] MEDS: SODIUM CHLORIDE 0.9% FLUSH 10 ML FLUSH IV FLUSH SCH ×2 (09:00→21:02)
[2017-06-19] MEDS: levETIRAcetam 500 MG TAB PO SCH ×2 (09:00→21:00)
[2017-06-19] MEDS: levETIRAcetam 250 MG TAB PO SCH ×2 (09:00→21:00)
--- NOTE | 2017-06-19 09:47 | HHI.IDPN ---
Subjective Subjective Remarks Patient is a 76-year-old female, brought into the hospital for hypotension. Patient has a history of hypertension, that is controlled with lisinopril. Her blood pressure usually runs in the 120s, but apparently recently in the afternoon and is been running on the high side. A hasn't been checking the blood pressure twice a day, and usually in the afternoon it's higher than 120, and can be up to 150. The last 10 days it has been running lower than 150, but still within the normal range. On the day of admission, the checked it in the morning and it was in the 70s. She was noted to be lethargic at that time, and so patient was taken to the hospital for further evaluation and treatment. apparently has noted some sluggishness in the patient, and he was supposed to have her follow-up with her neurosurgeon. She had a SHIPPING TEAM LEADER shunt revision in February of last year. Patient also has had problem with recurrent bladder infection, and has been referred to Dr. Nuñez for ID evaluation. She has been evaluated by a urologist in the past, and has been known to have incomplete emptying of her bladder. The last time she was seen by the urologist was about 3 years ago. There is been no respiratory complaint. There's been no nausea or vomiting or any diarrhea. In the ED patient was found to be hypotensive. She was given fluid bolus. She is now in the ICU and infectious disease consultation has been requested to evaluate the patient. She is afebrile. Her WBC was initially low at 3.5. Chest x-ray is unremarkable. She had a Arenas placed in the ED and they got 600 mL on initial insertion. Due to her aphasia , and it has been difficult for the to determine if she has any significant complaint. Notes reviewed D/W RN SOB and lethargy overnight Placed on BIPAP Has good UO Low grade temps BP ok Renal US no hydo Last CXR 06/17 - interstitial prominence UC pansensitive Klebsiella BC negative Antibiotics Cefepime Current Medications Medications (Trade) Dose Ordered Sig/Do Route Start Time Stop Time Status Last Admin Sodium Chloride 1,000 ml @ 150 mls/hr Q6H40M IV 06/16/17 14:35 06/18/17 19:55 (Zofran Inj) 4 mg Q6H PRN IVP 06/16/17 15:00 (Narcan Inj) 0.4 mg UNSCH PRN IV PUSH 06/16/17 14:45 (Milk Of Magnesia Liq) 30 ml Q12H PRN PO 06/16/17 15:00 (Lactinex) 1 tab TID PO 06/16/17 18:00 06/18/17 13:00 (NS Flush) 2 ml UNSCH PRN IV FLUSH 06/16/17 15:00 (NS Flush) 2 ml BID IV FLUSH 06/16/17 21:00 06/18/17 21:00 (Pepcid) 10 mg Q12HR PO 06/16/17 21:00 06/18/17 08:38 Norepinephrine Bitartrate 250 ml @ 7.5 mls/hr TITRATE PRN IV 06/16/17 15:00 06/16/17 22:20 (Brethine Inj) 1 mg UNSCH PRN SQ 06/16/17 15:00 (Alphagan 0.2% Opth Soln) 1 drop BID EACH EYE 06/16/17 21:00 06/17/17 09:00 (Flonase Oliver Spr) 1 spray DAILY EACH NARE 06/17/17 09:00 (Keppra) 500 mg BID PO 06/16/17 21:00 06/18/17 08:37 (Synthroid) 50 mcg DAILY@0600 PO 06/17/17 06:00 06/18/17 06:00 (Desyrel) 25 mg HS PO 06/16/17 21:00 06/17/17 19:40 (Keppra) 250 mg BID PO 06/16/17 21:00 06/18/17 08:37 (Pill Splitter) 1 ea UNSCH PRN OTHER 06/16/17 17:00 Miscellaneous Information Patient in critical care unit? Ass... Q361D .XX 06/17/17 07:00 (Chlorhexidine 2% Cloth) 3 pack DAILY@04 TOPICAL 06/18/17 04:00 06/22/17 04:01 06/19/17 00:13 (Chlorhexidine 2% Cloth) 3 pack UNSCH PRN TOPICAL 06/17/17 07:00 06/22/17 06:48 Cefepime HCl 2000 mg/Sodium Chloride 100 ml @ 200 mls/hr Q12H IV 06/17/17 11:00 06/18/17 23:00 (Chapstick) 1 applic UNSCH PRN TOPICAL 06/17/17 18:30 (Duoneb Neb) 1 ampule Q4HR NEB PRN NEB 06/18/17 21:30 06/18/17 21:39 Lines Line no evidence of infection Past Medical History Cirrhosis Hepatic encephalopathy Chronic anemia Hypertension History of CVA (hemorrhagic) Right hemiplegia Aphasia History of colon infection Recurrent urinary tract infections Headaches Osteoarthritis Compression fracture History of seizures Hypothyroidism Past Surgical History Shunt and brain 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 Vital Signs Date Time Temp Pulse Resp B/P (MAP) Pulse Ox O2 Delivery O2 Flow Rate FiO2 06/19/17 08:41 100 40 06/19/17 08:41 100 BiPAP 40 06/19/17 06:00 113 06/19/17 04:00 100.6 113 29 149/72 (97) 98 06/19/17 04:00 122 06/19/17 03:32 98 50 06/19/17 02:00 111 06/19/17 00:10 97 50 06/19/17 00:00 97.0 113 31 177/106 (129) 94 06/19/17 00:00 93 Bi-Pap 50 06/19/17 00:00 105 06/18/17 22:00 100 06/18/17 21:49 97 Nasal Cannula 3.00 06/18/17 21:39 88 Nasal Cannula 2.00 06/18/17 20:23 97 Nasal Cannula 2.00 06/18/17 20:00 101 06/18/17 20:00 97.3 93 19 173/83 (113) 95 06/18/17 18:00 96 06/18/17 16:00 96 06/18/17 16:00 98.0 98 17 178/84 (115) 94 06/18/17 14:00 96 06/18/17 12:00 98.0 98 17 170/85 (113) 94 06/18/17 12:00 96 06/18/17 10:00 96 06/18/17 10:00 98.0 98 17 170/85 (113) 94 . Laboratory Tests Test 06/18/17 21:51 Ammonia 26 MCMOL/L Microbiology Date/Time Source Procedure Growth Status 06/17/17 12:14 Blood Peripheral Aerobic Blood Culture - Preliminary NO GROWTH IN 1 DAY Resulted 06/17/17 12:14 Blood Peripheral Anaerobic Blood Culture - Preliminary NO GROWTH IN 1 DAY Resulted 06/17/17 12:02 Blood Peripheral Aerobic Blood Culture - Preliminary NO GROWTH IN 1 DAY Resulted 06/17/17 12:02 Blood Peripheral Anaerobic Blood Culture - Preliminary NO GROWTH IN 1 DAY Resulted 06/16/17 14:30 Blood Peripheral Aerobic Blood Culture - Preliminary NO GROWTH IN 2 DAYS Resulted 06/16/17 14:30 Blood Peripheral Anaerobic Blood Culture - Preliminary NO GROWTH IN 2 DAYS Resulted 06/16/17 13:34 Urine Catheterized Urine Urine Culture - Final Klebsiella Pneumoniae Complete Imaging Last Impressions Renal Ultrasound 06/17/17 0000 Signed Impressions: Service Date/Time: Saturday, June 17, 2017 10:49 - CONCLUSION: 1. Small echogenic kidneys characteristic of medical renal disease. No acute findings. Da Raymundo MD Chest X-Ray 06/17/17 0000 Signed Impressions: Service Date/Time: Saturday, June 17, 2017 00:21 - CONCLUSION: Normal examination. Mild interstitial prominence. Right IJ central line with its tip overlying the SVC. No visible pneumothorax. Sumit Carter MD Physical Exam GENERAL: lethargic, on BIPAP mask. SKIN: Cool and dry. No generalized rash, no ecchymoses and no evidence of embolic lesions. HEAD: Has scars on her scalp, has an indentation on her L frontal region EYES: Oto conjunctiva. No petechia or hemorrhage. Pupils equal, round and reactive to light. Extraocular movements full and intact. No scleral icterus. No injection or drainage. EARS, NOSE AND THROAT: Nose without bleeding or purulent nasal discharge. No sinus tenderness. Mucous membranes pink and moist. No oral lesions noted. No exudate. No oral thrush. NECK: Trachea midline. Supple and not tender, no meningeal signs CARDIOVASCULAR: Regular rate and rhythm. No murmurs, rubs or gallops heard RESPIRATORY: Scattered rhonchi ABDOMEN: Soft, nondistended, moaning some during palpation, not guarding. Bowel sounds present and normoactive. No organomegaly. EXTREMITIES: No clubbing, cyanosis, or edema. No joint effusion, has good ROM. NEUROLOGICAL: lethargic PSYCHIATRIC: Unable to assess LINE: No evidence of infection : Arenas in place, urine looks clear Assessment & Plan Remarks IMPRESSION Sepsis on admission, with shock, BP better - due to UTI likely UTI, with hx recurrent bladder infecion, likely due to incomplete emptying - C/S Pansensitive Klebsiella Respiratory failure Hx CVA with R sided weakness, and aphasia Hx SHIPPING TEAM LEADER shunt placement RECOMMENDATION 2 BC today IV cefepime CXR Give dose of Vanco, check level in AM Follow C/S and adjust Abx Monitor progress Address code status with D/W RN I will be off 06/20-06/25 Dr Kelly bautista covering in my absence Veronica Whyte MD Jun 19, 2017 09:47
[2017-06-19] MEDS ORDERED: VANCOMYCIN INJ 1,000 MG in SODIUM CHLOR 0.9% 250 ML INJ 250 ML IV ONE (10:00)
--- NOTE | 2017-06-19 10:12 | RADRPT ---
EXAM DATE/TIME: 06/19/2017 09:41 [facility] COMPARISON: CHEST SINGLE AP, June 17, 2017, 0:21. INDICATIONS : Short of breath, hypoxia MEDICAL HISTORY : Stroke. SURGICAL HISTORY : Fusion, lumbar. Cholecystectomy. Craniotomy. aneurysm clipping ENCOUNTER: Initial ACUITY: 3 days PAIN SCORE: Non-responsive. LOCATION: Bilateral chest FINDINGS: Right internal jugular catheter tip in the distal superior vena cava. Interval development of bilat eral consolidative infiltrates involving the perihilar and infrahilar lungs, both lower lobes. There is loss of delineation of most of both hemidiaphragms. There is also some hazy opacity in the mid a nd lower chest bilaterally suggesting coexistent pleural effusion. Heart size is normal. CONCLUSION: Interval development of bilateral consolidative infiltrates in the mid and lower lungs, and probable bilateral pleural effusions. Swapnil Esposito MD on June 19, 2017 at 10:08 Board Certified Radiologist. This report was verified electronically.
[2017-06-19] MEDS ORDERED: MAGNESIUM HYDROXIDE SUSP 30 ML CUP PO PRN (10:30)
[2017-06-19] MEDS ORDERED: BISACODYL 10 MG SUPP RECTAL PRN (10:30)
[2017-06-19] MEDS ORDERED: LACTULOSE SYRUP 20 GM/30 ML CUP PO PRN (10:30)
[2017-06-19] MEDS ORDERED: SENNOSIDES 8.6 MG TAB PO PRN (10:30)
[2017-06-19] MEDS ORDERED: NALOXONE HCL 0.4 MG/ML AMP IV PUSH PRN (10:30)
--- NOTE | 2017-06-19 11:05 | HHI.PR ---
Subjective Remarks With some sob, on BIPAP, ABG reviewed and reassuring. Patient appears in nad. Objective Vitals Vital Signs Date Time Temp Pulse Resp B/P (MAP) Pulse Ox O2 Delivery O2 Flow Rate FiO2 06/19/17 08:41 100 40 06/19/17 08:41 100 BiPAP 40 06/19/17 06:00 113 06/19/17 04:00 100.6 113 29 149/72 (97) 98 06/19/17 04:00 122 06/19/17 03:32 98 50 06/19/17 02:00 111 06/19/17 00:10 97 50 06/19/17 00:00 97.0 113 31 177/106 (129) 94 06/19/17 00:00 93 Bi-Pap 50 06/19/17 00:00 105 06/18/17 22:00 100 06/18/17 21:49 97 Nasal Cannula 3.00 06/18/17 21:39 88 Nasal Cannula 2.00 06/18/17 20:23 97 Nasal Cannula 2.00 06/18/17 20:00 101 06/18/17 20:00 97.3 93 19 173/83 (113) 95 06/18/17 18:00 96 06/18/17 16:00 96 06/18/17 16:00 98.0 98 17 178/84 (115) 94 06/18/17 14:00 96 06/18/17 12:00 98.0 98 17 170/85 (113) 94 06/18/17 12:00 96 I/O 06/18/17 06/18/17 06/18/17 06/19/17 06/19/17 06/19/17 07:00 15:00 23:00 07:00 15:00 23:00 Intake Total 350 ml 920 ml 100 ml Output Total 1350 ml 1450 ml 2000 ml Balance -1000 ml -530 ml -1900 ml Intake Oral 250 ml 320 ml IV Total 100 ml 600 ml 100 ml Output Urine Total 1350 ml 1450 ml 2000 ml # Bowel Movements 0 1 Result Diagram: 06/17/17 0738 06/17/17 0738 Imaging Last Impressions Chest X-Ray 06/19/17 0000 Signed Impressions: Service Date/Time: Monday, June 19, 2017 09:41 - CONCLUSION: Interval development of bilateral consolidative infiltrates in the mid and lower lungs, and probable bilateral pleural effusions. Swapnil Esposito MD Renal Ultrasound 06/17/17 0000 Signed Impressions: Service Date/Time: Saturday, June 17, 2017 10:49 - CONCLUSION: 1. Small echogenic kidneys characteristic of medical renal disease. No acute findings. Da Raymundo MD Objective Remarks GENERAL: 76 yo female, in bed, chronically ill, doesn't appear in acute distress. CARDIOVASCULAR: Regular rate and rhythm. RESPIRATORY: No accessory muscle use. Clear to auscultation. Breath sounds equal bilaterally. GASTROINTESTINAL: Abdomen soft, non-tender, nondistended. Hepatic and splenic margins not palpable. MUSCULOSKELETAL: Extremities without clubbing, cyanosis, or edema. No obvious deformities. NEUROLOGICAL: Awake and alert. Doesn't follow commands. Responding to questions with no, smiles. A/P Problem List: (1) Hypotension ICD Code: I95.9 - Hypotension, unspecified (2) UTI (urinary tract infection) ICD Code: N39.0 - Urinary tract infection, site not specified (3) Septic shock ICD Code: A41.9 - Sepsis, unspecified organism; R65.21 - Severe sepsis with septic shock (4) Severe sepsis ICD Code: A41.9 - Sepsis, unspecified organism; R65.20 - Severe sepsis without septic shock Status: Acute (5) Pancytopenia ICD Code: D61.818 - Other pancytopenia Status: Acute Assessment and Plan UTI Sepsis Hypotension. Resolved, Off pressors. Cirrhosis Anemia of chronic disease History of recurrent UTIs Right hemiparesis History of SUCCESS COACH shunt Received aggressive fluid resuscitation and was on Levophed. Off Levophed. BP is stable. However noted with chest congestion, dessating and was on BiPAP overnight 06/19/17. CXR reviewed with bilateral PNA, bilat effusions. Give solumedrol x1. Give lasix. Monitor UOP, renal function. ABG is reassuring. Empiric antibiotic coverage. ID consulted in view of recurrent UTIs for further evaluation, Dr Whyte is ff appreciate recommendations. Continue Keppra. DVT prophylaxis with cutaneous heparin. Discussed with ICU nurse, family at bedside. Katherine Lehman MD Jun 19, 2017 11:05
[2017-06-19] MEDS: ENOXAPARIN SODIUM 40 MG/0.4 ML SYRINGE SQ SCH (11:48)
[2017-06-19] MEDS: CEFEPIME INJ 2,000 MG in SODIUM CHLORIDE 0.9% INJ 100 ML IV SCH ×2 (11:49→23:40)
[2017-06-19] MEDS ORDERED: methylPREDNISolone SOD SUCC 40 MG/1 ML VIAL IV PUSH ONE (12:00)
[2017-06-19] MEDS ORDERED: FUROSEMIDE 40 MG/4 ML VIAL IV PUSH ONE (12:00)
[2017-06-19] MEDS ORDERED: HALOPERIDOL LACTATE 5 MG/ML AMP IV PUSH ONE (17:00)
[2017-06-19] MEDS: BRIMONIDINE TARTRATE 0.2% OPHT SOLN 5 ML BTL EACH EYE SCH ×2 (17:04→21:02)
[2017-06-19] MEDS: RESP: ALBUTEROL 2.5 MG/IPRATROPIUM 0.5 MG NEB (PRN) NEB (17:25)
[2017-06-19] MEDS ORDERED: FUROSEMIDE 20 MG/2 ML VIAL IV PUSH SCH (18:00)
[2017-06-19] MEDS: traZODone HCL 50 MG TAB PO SCH (21:00)
[2017-06-19] MEDS: DOCUSATE SODIUM 50 MG/SENNA 8.6 MG TAB PO SCH (21:00)
--- NOTE | 2017-06-19 22:45 | EKG ---
Date Performed: 06/19/2017 Time Performed: 10:43:25 PTAGE: 76 years EKG: SINUS TACHYCARDIA LOW QRS VOLTAGE IN EXTREMITY LEADS ABNORMAL RHYTHM ECG PREVIOUS TRACING : 06/16/2017 12.39 Compared to previous tracing, rate faster., DOCTOR: Calixto Vela Interpretating Date/Time 06/19/2017 22:44:07
[2017-06-20] VITALS (16 sets, daily range): BP systolic 89–140; BP diastolic 52–72; PULSE 82–110; RESP 11–36; TEMP 98.2–98.7; O2SAT 96–99
[2017-06-20] MEDS: CHLORHEXIDINE GLUCONATE 2 % 1 PACK (2 CLOTHS)(taper/protocol) TOPICAL SCH (04:00)
[2017-06-20] MEDS: LEVOTHYROXINE SODIUM 50 MCG TAB PO SCH (04:25)
[2017-06-20 05:00] LABS: AUTOMATED NEUTROPHIL # 7.1 TH/MM3 (1.8-7.7); BASOPHIL % 0.1 % (0.0-2.0); HEMATOCRIT 28.5 % (35.0-46.0); HEMOGLOBIN 9.8 GM/DL (11.6-15.3); LYMPH % 14.3 % (9.0-44.0); LYMPHOCYTE # 1.4 TH/MM3 (1.0-4.8); MEAN CELL VOLUME 95.3 FL (80.0-100.0); MEAN CORPUSCULAR HEMOGLOBIN 32.9 PG (27.0-34.0); MEAN CORPUSCULAR HGB CONC 34.5 % (32.0-36.0); MEAN PLATELET VOLUME 7.4 FL (7.0-11.0); MONO % 11.1 % (0.0-8.0); MONOCYTE # 1.1 TH/MM3 (0-0.9); NEUT % 74.5 % (16.0-70.0); PLATELET COUNT 84 TH/MM3 (150-450); RED BLOOD COUNT 2.99 MIL/MM3 (4.00-5.30); RED CELL DISTRIBUTION WIDTH 15.6 % (11.6-17.2); WHITE BLOOD COUNT 9.5 TH/MM3 (4.0-11.0)
[2017-06-20 05:21] LABS: ALBUMIN 2.4 GM/DL (3.4-5.0); ALT (GPT) 24 U/L (10-53); AST (GOT) 40 U/L (15-37); BICARBONATE 23.5 MEQ/L (21.0-32.0); BLOOD UREA NITROGEN 21 MG/DL (7-18); CALCIUM 8.6 MG/DL (8.5-10.1); CHLORIDE 109 MEQ/L (98-107); CREATININE 0.93 MG/DL (0.50-1.00); GLOMERULAR FILTRATION RATE 58 ML/MIN (>89); GLUCOSE,RANDOM 114 MG/DL (74-106); SODIUM (NA) 141 MEQ/L (136-145)
[2017-06-20 05:24] LABS: ALKALINE PHOSPHATASE 80 U/L (45-117); RANDOM VANCOMYCIN 8.4 COMMENT; TOTAL BILIRUBIN ADULT 0.9 MG/DL (0.2-1.0); TOTAL PROTEIN 6.1 GM/DL (6.4-8.2)
[2017-06-20] MEDS: FUROSEMIDE 20 MG/2 ML VIAL IV PUSH SCH (07:57)
[2017-06-20] MEDS: SODIUM CHLORIDE 0.9% FLUSH 10 ML FLUSH IV FLUSH SCH ×2 (07:57→20:30)
[2017-06-20] MEDS: BRIMONIDINE TARTRATE 0.2% OPHT SOLN 5 ML BTL EACH EYE SCH ×2 (07:57→20:30)
--- NOTE | 2017-06-20 08:07 | HHI.PR ---
Subjective Remarks The patient is more awake and alert today. Per at bedside he was able to have some conversation with her in the morning. No fever no chills. No abdominal pain. No diarrhea. Urine is clear. Less shortness of breath. She was on BiPAP overnight, transitioned to ana mask and now on 4 L by nasal cannula and saturating well. Objective Vitals Vital Signs Date Time Temp Pulse Resp B/P (MAP) Pulse Ox O2 Delivery O2 Flow Rate FiO2 06/20/17 06:00 100 06/20/17 04:00 97.9 89 21 126/72 (90) 98 06/20/17 04:00 89 06/20/17 03:28 99 40 06/20/17 02:00 82 06/20/17 00:58 98 40 06/20/17 00:00 82 06/20/17 00:00 98.4 82 11 89/52 (64) 96 06/19/17 22:00 96 06/19/17 21:36 97 40 06/19/17 20:00 99.3 103 24 139/74 (95) 96 06/19/17 20:00 103 06/19/17 19:00 96 Bi-Pap 40 06/19/17 18:00 102 06/19/17 17:00 97 Bi-Pap 40 06/19/17 16:00 119 06/19/17 16:00 98.8 119 32 183/116 (138) 98 06/19/17 14:00 112 06/19/17 12:10 99 40 06/19/17 12:00 98.9 109 30 152/79 (103) 99 06/19/17 12:00 109 06/19/17 10:00 115 06/19/17 08:41 100 40 06/19/17 08:41 100 BiPAP 40 I/O 06/19/17 06/19/17 06/19/17 06/20/17 06/20/17 06/20/17 07:00 15:00 23:00 07:00 15:00 23:00 Intake Total 100 ml 350 ml 100 ml Output Total 2000 ml 1800 ml 350 ml Balance -1900 ml 350 ml -1800 ml -250 ml IV Total 100 ml 350 ml 100 ml Output Urine Total 2000 ml 1800 ml 350 ml # Bowel Movements 1 0 Result Diagram: 06/20/17 04206/20/17 042 Imaging Last Impressions Chest X-Ray 06/19/17 0000 Signed Impressions: Service Date/Time: Monday, June 19, 2017 09:41 - CONCLUSION: Interval development of bilateral consolidative infiltrates in the mid and lower lungs, and probable bilateral pleural effusions. Swapnil Esposito MD Renal Ultrasound 06/17/17 0000 Signed Impressions: Service Date/Time: Saturday, June 17, 2017 10:49 - CONCLUSION: 1. Small echogenic kidneys characteristic of medical renal disease. No acute findings. Da Raymundo MD Objective Remarks GENERAL: 76 yo female, in bed, chronically ill, doesn't appear in acute distress. CARDIOVASCULAR: Regular rate and rhythm. RESPIRATORY: No accessory muscle use. Clear to auscultation. Breath sounds equal bilaterally. GASTROINTESTINAL: Abdomen soft, non-tender, nondistended. Hepatic and splenic margins not palpable. MUSCULOSKELETAL: Extremities without clubbing, cyanosis, or edema. No obvious deformities. NEUROLOGICAL: Awake and alert. Doesn't follow commands. Responding to questions with no, smiles. A/P Problem List: (1) Hypotension ICD Code: I95.9 - Hypotension, unspecified (2) UTI (urinary tract infection) ICD Code: N39.0 - Urinary tract infection, site not specified (3) Septic shock ICD Code: A41.9 - Sepsis, unspecified organism; R65.21 - Severe sepsis with septic shock (4) Severe sepsis ICD Code: A41.9 - Sepsis, unspecified organism; R65.20 - Severe sepsis without septic shock Status: Acute (5) Pancytopenia ICD Code: D61.818 - Other pancytopenia Status: Acute Assessment and Plan UTI Sepsis PNA Hypotension. Resolved, Off pressors. 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 Off Levophed. BP is stable. Off IVF. However noted with chest congestion, dessating and was on BiPAP overnight 06/19/17. CXR reviewed with bilateral PNA, bilat effusions. Received solumedrol x1, lasix IV. Monitor UOP, renal function. ABG is reassuring. Continue lasix IV 20 mg daily BNP is elevated in 1300s. 2D ECHO pending. Continue cefepime per ID recommendation ID consulted in view of recurrent UTIs for further evaluation, Dr Whyte is ff appreciate recommendations. Continue Keppra. DVT prophylaxis with cutaneous heparin. Discussed with ICU nurse, family at bedside. Katherine Lehman MD Jun 20, 2017 08:07
[2017-06-20] MEDS ORDERED: LORazepam 0.5 MG TAB PO PRN (08:15)
[2017-06-20] MEDS: DOCUSATE SODIUM 50 MG/SENNA 8.6 MG TAB PO SCH ×2 (08:39→20:30)
[2017-06-20] MEDS: levETIRAcetam 250 MG TAB PO SCH ×2 (08:39→20:30)
[2017-06-20] MEDS: FAMOTIDINE 20 MG TAB PO SCH ×2 (08:39→20:30)
[2017-06-20] MEDS: LACTOBACILLUS ACIDOPHILUS TAB PO SCH ×3 (08:39→18:00)
[2017-06-20] MEDS: levETIRAcetam 500 MG TAB PO SCH ×2 (08:39→20:30)
--- NOTE | 2017-06-20 11:03 | HHI.IDPN ---
Subjective Subjective Remarks ID Xcover for . Chart reviewed. Patient is a 76-year-old female, brought into the hospital for hypotension. Patient has a history of hypertension, that is controlled with lisinopril. Her blood pressure usually runs in the 120s, but apparently recently in the afternoon and is been running on the high side. A hasn't been checking the blood pressure twice a day, and usually in the afternoon it's higher than 120, and can be up to 150. The last 10 days it has been running lower than 150, but still within the normal range. On the day of admission, the checked it in the morning and it was in the 70s. She was noted to be lethargic at that time, and so patient was taken to the hospital for further evaluation and treatment. apparently has noted some sluggishness in the patient, and he was supposed to have her follow-up with her neurosurgeon. She had a MEDICAL ASSISTANT PRN shunt revision in February of last year. Patient also has had problem with recurrent bladder infection, and has been referred to Dr. Nuñez for ID evaluation. She has been evaluated by a urologist in the past, and has been known to have incomplete emptying of her bladder. The last time she was seen by the urologist was about 3 years ago. There is been no respiratory complaint. There's been no nausea or vomiting or any diarrhea. In the ED patient was found to be hypotensive. She was given fluid bolus. She is now in the ICU and infectious disease consultation has been requested to evaluate the patient. She is afebrile. Her WBC was initially low at 3.5. Chest x-ray is unremarkable. She had a Arenas placed in the ED and they got 600 mL on initial insertion. Due to her aphasia , and it has been difficult for the to determine if she has any significant complaint. Overnight events reviewed with RN. Not on pressors. On room air. Awake, not oriented, easily dozes off. Recognizes and tracks spouse and smiles towards him. Off BiPAP. Has good UO Low grade temps BP ok Renal US no hydo Last CXR 06/17 - interstitial prominence UC pansensitive Klebsiella BC negative Antibiotics Cefepime Current Medications Current Medications Medications (Trade) Dose Ordered Sig/Do Route Start Time Stop Time Status Last Admin (Zofran Inj) 4 mg Q6H PRN IVP 06/16/17 15:00 (Lactinex) 1 tab TID PO 06/16/17 18:00 06/20/17 08:39 (NS Flush) 2 ml UNSCH PRN IV FLUSH 06/16/17 15:00 (NS Flush) 2 ml BID IV FLUSH 06/16/17 21:00 06/20/17 07:57 (Pepcid) 10 mg Q12HR PO 06/16/17 21:00 06/20/17 08:39 Norepinephrine Bitartrate 250 ml @ 7.5 mls/hr TITRATE PRN IV 06/16/17 15:00 06/16/17 22:20 (Brethine Inj) 1 mg UNSCH PRN SQ 06/16/17 15:00 (Alphagan 0.2% Opth Soln) 1 drop BID EACH EYE 06/16/17 21:00 06/20/17 07:57 (Flonase Oliver Spr) 1 spray DAILY EACH NARE 06/17/17 09:00 (Keppra) 500 mg BID PO 06/16/17 21:00 06/20/17 08:39 (Synthroid) 50 mcg DAILY@0600 PO 06/17/17 06:00 06/18/17 06:00 (Desyrel) 25 mg HS PO 06/16/17 21:00 06/17/17 19:40 (Keppra) 250 mg BID PO 06/16/17 21:00 06/20/17 08:39 (Pill Splitter) 1 ea UNSCH PRN OTHER 06/16/17 17:00 Miscellaneous Information Patient in critical care unit? Ass... Q361D .XX 06/17/17 07:00 (Chlorhexidine 2% Cloth) 3 pack DAILY@04 TOPICAL 06/18/17 04:00 06/22/17 04:01 06/20/17 04:00 (Chlorhexidine 2% Cloth) 3 pack UNSCH PRN TOPICAL 06/17/17 07:00 06/22/17 06:48 Cefepime HCl 2000 mg/Sodium Chloride 100 ml @ 200 mls/hr Q12H IV 06/17/17 11:00 06/19/17 23:40 (Chapstick) 1 applic UNSCH PRN TOPICAL 06/17/17 18:30 (Duoneb Neb) 1 ampule Q4HR NEB PRN NEB 06/18/17 21:30 06/19/17 17:25 (Lovenox Inj) 40 mg Q24H SQ 06/19/17 12:00 06/19/17 11:48 (Narcan Inj) 0.4 mg UNSCH PRN IV PUSH 06/19/17 10:30 (Divya-Colace) 1 tab BID PO 06/19/17 21:00 06/20/17 08:39 (Milk Of Magnesia Liq) 30 ml Q12H PRN PO 06/19/17 10:30 (Senokot) 17.2 mg Q12H PRN PO 06/19/17 10:30 (Dulcolax Supp) 10 mg DAILY PRN RECTAL 06/19/17 10:30 (Lactulose Liq) 30 ml DAILY PRN PO 06/19/17 10:30 (Lasix Inj) 20 mg DAILY IV PUSH 06/20/17 09:00 06/20/17 07:57 (Ativan) 0.5 mg Q8H PRN PO 06/20/17 08:15 Lines Line no evidence of infection Past Medical History Cirrhosis Hepatic encephalopathy Chronic anemia Hypertension History of CVA (hemorrhagic) Right hemiplegia Aphasia History of colon infection Recurrent urinary tract infections Headaches Osteoarthritis Compression fracture History of seizures Hypothyroidism Past Surgical History Shunt and brain 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 Bilateral cataract surgery Insulin pump Right breast cyst removal MEDICAL ASSISTANT PRN shunt, last revision Feb 2017 Allergies: Coded Allergies: amoxicillin (Verified Adverse Reaction, Severe, DISORIENTED, 06/17/17) ceftriaxone (Verified Adverse Reaction, Intermediate, DISORIENTED, 06/17/17 ) ciprofloxacin (Unverified Adverse Reaction, Unknown, DISORIENTED, 06/17/17) LOW GRADE FEVER AND DISORIENTATION levofloxacin (Unverified Adverse Reaction, Unknown, DISORIENTED, 06/17/17) LOW GRADE FEVER, DISORIENTATION Objective . Vital Signs Date Time Temp Pulse Resp B/P (MAP) Pulse Ox O2 Delivery O2 Flow Rate FiO2 06/20/17 10:00 98 06/20/17 08:30 95 Nasal Cannula 4.00 06/20/17 08:25 98 Nasal Cannula 4.00 06/20/17 08:05 98 Venturi Mask 6.00 50 06/20/17 08:00 97 Bi-Pap 40 06/20/17 08:00 110 06/20/17 08:00 98.7 110 30 129/67 (87) 97 06/20/17 06:00 100 06/20/17 04:00 97.9 89 21 126/72 (90) 98 06/20/17 04:00 89 06/20/17 03:28 99 40 06/20/17 02:00 82 06/20/17 00:58 98 40 06/20/17 00:00 82 06/20/17 00:00 98.4 82 11 89/52 (64) 96 06/19/17 22:00 96 06/19/17 21:36 97 40 06/19/17 20:00 99.3 103 24 139/74 (95) 96 06/19/17 20:00 103 06/19/17 19:00 96 Bi-Pap 40 06/19/17 18:00 102 06/19/17 17:00 97 Bi-Pap 40 06/19/17 16:00 119 06/19/17 16:00 98.8 119 32 183/116 (138) 98 06/19/17 14:00 112 06/19/17 12:10 99 40 06/19/17 12:00 98.9 109 30 152/79 (103) 99 06/19/17 12:00 109 . Laboratory Tests Test 06/20/17 04:20 White Blood Count 9.5 TH/MM3 Red Blood Count 2.99 MIL/MM3 Hemoglobin 9.8 GM/DL Hematocrit 28.5 % Mean Corpuscular Volume 95.3 FL Mean Corpuscular Hemoglobin 32.9 PG Mean Corpuscular Hemoglobin Concent 34.5 % Red Cell Distribution Width 15.6 % Platelet Count 84 TH/MM3 Mean Platelet Volume 7.4 FL Neutrophils (%) (Auto) 74.5 % Lymphocytes (%) (Auto) 14.3 % Monocytes (%) (Auto) 11.1 % Eosinophils (%) (Auto) 0.0 % Basophils (%) (Auto) 0.1 % Neutrophils # (Auto) 7.1 TH/MM3 Lymphocytes # (Auto) 1.4 TH/MM3 Monocytes # (Auto) 1.1 TH/MM3 Eosinophils # (Auto) 0.0 TH/MM3 Basophils # (Auto) 0.0 TH/MM3 CBC Comment AUTO DIFF Differential Comment AUTO DIFF CONFIRMED Laboratory Tests Test 06/18/17 21:51 4/2/18 10:15 06/20/17 04:20 Ammonia 26 MCMOL/L B-Type Natriuretic Peptide 1424 PG/ML Blood Urea Nitrogen 21 MG/DL Creatinine 0.93 MG/DL Random Glucose 114 MG/DL Total Protein 6.1 GM/DL Albumin 2.4 GM/DL Calcium Level 8.6 MG/DL Alkaline Phosphatase 80 U/L Aspartate Amino Transf (AST/SGOT) 40 U/L Alanine Aminotransferase (ALT/SGPT) 24 U/L Total Bilirubin 0.9 MG/DL Sodium Level 141 MEQ/L Potassium Level 3.9 MEQ/L Chloride Level 109 MEQ/L Carbon Dioxide Level 23.5 MEQ/L Anion Gap 9 MEQ/L Estimat Glomerular Filtration Rate 58 ML/MIN Microbiology Date/Time Source Procedure Growth Status 06/19/17 13:47 Blood Peripheral Aerobic Blood Culture Pending Received 06/19/17 13:47 Blood Peripheral Anaerobic Blood Culture Pending Received 06/19/17 10:15 Blood Peripheral Aerobic Blood Culture Pending Received 06/19/17 10:15 Blood Peripheral Anaerobic Blood Culture Pending Received 06/17/17 12:14 Blood Peripheral Aerobic Blood Culture - Preliminary NO GROWTH IN 2 DAYS Resulted 06/17/17 12:14 Blood Peripheral Anaerobic Blood Culture - Preliminary NO GROWTH IN 2 DAYS Resulted 06/17/17 12:02 Blood Peripheral Aerobic Blood Culture - Preliminary NO GROWTH IN 2 DAYS Resulted 06/17/17 12:02 Blood Peripheral Anaerobic Blood Culture - Preliminary NO GROWTH IN 2 DAYS Resulted Imaging Last Impressions Renal Ultrasound 06/17/17 0000 Signed Impressions: Service Date/Time: Saturday, June 17, 2017 10:49 - CONCLUSION: 1. Small echogenic kidneys characteristic of medical renal disease. No acute findings. Da Raymundo MD Chest X-Ray 06/17/17 0000 Signed Impressions: Service Date/Time: Saturday, June 17, 2017 00:21 - CONCLUSION: Normal examination. Mild interstitial prominence. Right IJ central line with its tip overlying the SVC. No visible pneumothorax. Sumit Carter MD Physical Exam GENERAL: Awake, not oriented. Smiled and tracked. SKIN: Cool and dry. No generalized rash, no ecchymoses and no evidence of embolic lesions. HEAD: Has scars on her scalp, has an indentation on her L frontal region. right forehead MEDICAL ASSISTANT PRN shunt device with knob in place. EYES: [place] conjunctiva. No petechia or hemorrhage. Pupils equal, round and reactive to light. Extraocular movements full and intact. No scleral icterus. No injection or drainage. EARS, NOSE AND THROAT: Nose without bleeding or purulent nasal discharge. No sinus tenderness. Mucous membranes pink and moist. No oral lesions noted. No exudate. No oral thrush. NECK: Trachea midline. Supple and not tender, no meningeal signs CARDIOVASCULAR: Regular rate and rhythm. No murmurs, rubs or gallops heard RESPIRATORY: Scattered rhonchi ABDOMEN: Soft, nondistended, moaning some during palpation, not guarding. Bowel sounds present and normoactive. No organomegaly. EXTREMITIES: No clubbing, cyanosis, or edema. No joint effusion, has good ROM. NEUROLOGICAL: lethargic but arousable. PSYCHIATRIC: Unable to assess LINE: No evidence of infection : Arenas in place, urine looks clear Assessment & Plan Remarks IMPRESSION Sepsis on admission, with shock, BP better - due to UTI likely UTI, with hx recurrent bladder infecion, likely due to incomplete emptying - C/S Pansensitive Klebsiella Possible aspiration PNA in setting of acute metabolic encephalopathy, Acute metabolic encephalopathy. Respiratory failure Hx CVA with R sided weakness, and aphasia Hx MEDICAL ASSISTANT PRN shunt placement (original in 1989, then replaced at in Feb 2017: has a device to control flow of CSF by magnetic device) RECOMMENDATION Continue Cefepime IV No further vanc doses. Will not add flagyl as concern for worsening of encephalopathy. Follow cultures Follow clinically. dw who is thankful of care provided. Rosa Martin MD Jun 20, 2017 11:03
[2017-06-20] MEDS: CEFEPIME INJ 2,000 MG in SODIUM CHLORIDE 0.9% INJ 100 ML IV SCH ×2 (11:51→23:00)
[2017-06-20] MEDS: ENOXAPARIN SODIUM 40 MG/0.4 ML SYRINGE SQ SCH (11:51)
[2017-06-20] MEDS: traZODone HCL 50 MG TAB PO SCH (20:30)
[2017-06-21] VITALS (31 sets, daily range): BP systolic 90–185; BP diastolic 52–96; PULSE 90–122; RESP 18–45; TEMP 98.3–99.4; O2SAT 94–100
[2017-06-21 03:43] LABS: AUTOMATED NEUTROPHIL # 8.5 TH/MM3 (1.8-7.7); BASOPHIL % 0.4 % (0.0-2.0); EOSINOPHIL # 0.1 TH/MM3 (0-0.4); EOSINOPHIL % 1.1 % (0.0-4.0); HEMATOCRIT 27.3 % (35.0-46.0); HEMOGLOBIN 9.3 GM/DL (11.6-15.3); LYMPH % 15.6 % (9.0-44.0); LYMPHOCYTE # 1.8 TH/MM3 (1.0-4.8); MEAN CELL VOLUME 94.3 FL (80.0-100.0); MEAN CORPUSCULAR HEMOGLOBIN 32.1 PG (27.0-34.0); MEAN PLATELET VOLUME 7.2 FL (7.0-11.0); MONO % 10.5 % (0.0-8.0); MONOCYTE # 1.2 TH/MM3 (0-0.9); NEUT % 72.4 % (16.0-70.0); PLATELET COUNT 113 TH/MM3 (150-450); RED BLOOD COUNT 2.89 MIL/MM3 (4.00-5.30); RED CELL DISTRIBUTION WIDTH 15.4 % (11.6-17.2); WHITE BLOOD COUNT 11.7 TH/MM3 (4.0-11.0)
[2017-06-21] MEDS: CHLORHEXIDINE GLUCONATE 2 % 1 PACK (2 CLOTHS)(taper/protocol) TOPICAL SCH (04:00)
[2017-06-21 04:06] LABS: BICARBONATE 25.2 MEQ/L (21.0-32.0); CALCIUM 8.6 MG/DL (8.5-10.1); CREATININE 0.91 MG/DL (0.50-1.00); MAGNESIUM 1.8 MG/DL (1.5-2.5)
[2017-06-21] MEDS: LEVOTHYROXINE SODIUM 50 MCG TAB PO SCH (05:31)
[2017-06-21] MEDS: levETIRAcetam 500 MG TAB PO SCH ×2 (08:53→21:05)
[2017-06-21] MEDS: LACTOBACILLUS ACIDOPHILUS TAB PO SCH ×3 (08:54→18:00)
[2017-06-21] MEDS: DOCUSATE SODIUM 50 MG/SENNA 8.6 MG TAB PO SCH ×2 (08:54→21:05)
[2017-06-21] MEDS: FUROSEMIDE 20 MG/2 ML VIAL IV PUSH SCH ×2 (08:54→18:00)
[2017-06-21] MEDS: SODIUM CHLORIDE 0.9% FLUSH 10 ML FLUSH IV FLUSH SCH ×2 (08:54→21:00)
[2017-06-21] MEDS: FAMOTIDINE 20 MG TAB PO SCH ×2 (08:54→21:05)
[2017-06-21] MEDS: levETIRAcetam 250 MG TAB PO SCH ×2 (08:54→21:05)
[2017-06-21] MEDS: BRIMONIDINE TARTRATE 0.2% OPHT SOLN 5 ML BTL EACH EYE SCH ×2 (09:00→21:04)
--- NOTE | 2017-06-21 11:20 | HHI.IDPN ---
Subjective Subjective Remarks ID Xcover for . Chart reviewed. Patient is a 76-year-old female, brought into the hospital for hypotension. Patient has a history of hypertension, that is controlled with lisinopril. Her blood pressure usually runs in the 120s, but apparently recently in the afternoon and is been running on the high side. A hasn't been checking the blood pressure twice a day, and usually in the afternoon it's higher than 120, and can be up to 150. The last 10 days it has been running lower than 150, but still within the normal range. On the day of admission, the checked it in the morning and it was in the 70s. She was noted to be lethargic at that time, and so patient was taken to the hospital for further evaluation and treatment. apparently has noted some sluggishness in the patient, and he was supposed to have her follow-up with her neurosurgeon. She had a COMPUTING ARCHITECT shunt revision in February of last year. Patient also has had problem with recurrent bladder infection, and has been referred to Dr. Nuñez for ID evaluation. She has been evaluated by a urologist in the past, and has been known to have incomplete emptying of her bladder. The last time she was seen by the urologist was about 3 years ago. There is been no respiratory complaint. There's been no nausea or vomiting or any diarrhea. In the ED patient was found to be hypotensive. She was given fluid bolus. She is now in the ICU and infectious disease consultation has been requested to evaluate the patient. She is afebrile. Her WBC was initially low at 3.5. Chest x-ray is unremarkable. She had a Arenas placed in the ED and they got 600 mL on initial insertion. Due to her aphasia , and it has been difficult for the to determine if she has any significant complaint. Overnight events reviewed with RN. Not on pressors. On room air. Lethargic today. Off BiPAP. Has an area of erythema on bridge of nose at BiPAP mask site. BP ok Renal US no hydo Last CXR 06/17 - interstitial prominence UC pansensitive Klebsiella BC negative Antibiotics Cefepime Current Medications Current Medications Medications (Trade) Dose Ordered Sig/Do Route Start Time Stop Time Status Last Admin (Zofran Inj) 4 mg Q6H PRN IVP 06/16/17 15:00 (Lactinex) 1 tab TID PO 06/16/17 18:00 06/20/17 08:39 (NS Flush) 2 ml UNSCH PRN IV FLUSH 06/16/17 15:00 (NS Flush) 2 ml BID IV FLUSH 06/16/17 21:00 06/20/17 07:57 (Pepcid) 10 mg Q12HR PO 06/16/17 21:00 06/20/17 08:39 Norepinephrine Bitartrate 250 ml @ 7.5 mls/hr TITRATE PRN IV 06/16/17 15:00 06/16/17 22:20 (Brethine Inj) 1 mg UNSCH PRN SQ 06/16/17 15:00 (Alphagan 0.2% Opth Soln) 1 drop BID EACH EYE 06/16/17 21:00 06/20/17 07:57 (Flonase Oliver Spr) 1 spray DAILY EACH NARE 06/17/17 09:00 (Keppra) 500 mg BID PO 06/16/17 21:00 06/20/17 08:39 (Synthroid) 50 mcg DAILY@0600 PO 06/17/17 06:00 06/18/17 06:00 (Desyrel) 25 mg HS PO 06/16/17 21:00 06/17/17 19:40 (Keppra) 250 mg BID PO 06/16/17 21:00 06/20/17 08:39 (Pill Splitter) 1 ea UNSCH PRN OTHER 06/16/17 17:00 Miscellaneous Information Patient in critical care unit? Ass... Q361D .XX 06/17/17 07:00 (Chlorhexidine 2% Cloth) 3 pack DAILY@04 TOPICAL 06/18/17 04:00 06/22/17 04:01 06/20/17 04:00 (Chlorhexidine 2% Cloth) 3 pack UNSCH PRN TOPICAL 06/17/17 07:00 06/22/17 06:48 Cefepime HCl 2000 mg/Sodium Chloride 100 ml @ 200 mls/hr Q12H IV 06/17/17 11:00 06/19/17 23:40 (Chapstick) 1 applic UNSCH PRN TOPICAL 06/17/17 18:30 (Duoneb Neb) 1 ampule Q4HR NEB PRN NEB 06/18/17 21:30 06/19/17 17:25 (Lovenox Inj) 40 mg Q24H SQ 06/19/17 12:00 06/19/17 11:48 (Narcan Inj) 0.4 mg UNSCH PRN IV PUSH 06/19/17 10:30 (Divya-Colace) 1 tab BID PO 06/19/17 21:00 06/20/17 08:39 (Milk Of Magnesia Liq) 30 ml Q12H PRN PO 06/19/17 10:30 (Senokot) 17.2 mg Q12H PRN PO 06/19/17 10:30 (Dulcolax Supp) 10 mg DAILY PRN RECTAL 06/19/17 10:30 (Lactulose Liq) 30 ml DAILY PRN PO 06/19/17 10:30 (Lasix Inj) 20 mg DAILY IV PUSH 06/20/17 09:00 06/20/17 07:57 (Ativan) 0.5 mg Q8H PRN PO 06/20/17 08:15 Lines Line no evidence of infection Past Medical History Cirrhosis Hepatic encephalopathy Chronic anemia Hypertension History of CVA (hemorrhagic) Right hemiplegia Aphasia History of colon infection Recurrent urinary tract infections Headaches Osteoarthritis Compression fracture History of seizures Hypothyroidism Past Surgical History Shunt and brain 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 Bilateral cataract surgery Insulin pump Right breast cyst removal COMPUTING ARCHITECT shunt, last revision Feb 2017 Allergies: Coded Allergies: amoxicillin (Verified Adverse Reaction, Severe, DISORIENTED, 06/17/17) ceftriaxone (Verified Adverse Reaction, Intermediate, DISORIENTED, 06/17/17 ) ciprofloxacin (Unverified Adverse Reaction, Unknown, DISORIENTED, 06/17/17) LOW GRADE FEVER AND DISORIENTATION levofloxacin (Unverified Adverse Reaction, Unknown, DISORIENTED, 06/17/17) LOW GRADE FEVER, DISORIENTATION Objective . Vital Signs Date Time Temp Pulse Resp B/P (MAP) Pulse Ox O2 Delivery O2 Flow Rate FiO2 06/21/17 08:13 98 Nasal Cannula 4.00 06/21/17 08:00 103 06/21/17 08:00 105 21 158/85 (109) 95 06/21/17 08:00 99.4 118 21 158/85 (109) 94 06/21/17 06:00 103 06/21/17 04:00 105 06/21/17 04:00 97.9 105 21 128/71 (90) 95 06/21/17 03:38 94 Nasal Cannula 4.00 06/21/17 02:00 97 06/21/17 00:37 99 Nasal Cannula 4.00 06/21/17 00:00 90 06/21/17 00:00 96.8 90 18 117/60 (79) 98 06/20/17 22:00 87 06/20/17 20:25 99 Nasal Cannula 4.00 06/20/17 20:00 97 06/20/17 20:00 97.3 97 36 114/64 (81) 98 06/20/17 19:00 96 Nasal Cannula 2.00 06/20/17 18:00 108 06/20/17 16:00 98.4 99 25 127/66 (86) 97 06/20/17 16:00 97 06/20/17 14:00 99 06/20/17 12:00 98.2 104 29 140/72 (94) 97 06/20/17 12:00 104 . Laboratory Tests Test 06/20/17 04:20 06/21/17 03:30 White Blood Count 9.5 TH/MM3 11.7 TH/MM3 Red Blood Count 2.99 MIL/MM3 2.89 MIL/MM3 Hemoglobin 9.8 GM/DL 9.3 GM/DL Hematocrit 28.5 % 27.3 % Mean Corpuscular Volume 95.3 FL 94.3 FL Mean Corpuscular Hemoglobin 32.9 PG 32.1 PG Mean Corpuscular Hemoglobin Concent 34.5 % 34.0 % Red Cell Distribution Width 15.6 % 15.4 % Platelet Count 84 TH/MM3 113 TH/MM3 Mean Platelet Volume 7.4 FL 7.2 FL Neutrophils (%) (Auto) 74.5 % 72.4 % Lymphocytes (%) (Auto) 14.3 % 15.6 % Monocytes (%) (Auto) 11.1 % 10.5 % Eosinophils (%) (Auto) 0.0 % 1.1 % Basophils (%) (Auto) 0.1 % 0.4 % Neutrophils # (Auto) 7.1 TH/MM3 8.5 TH/MM3 Lymphocytes # (Auto) 1.4 TH/MM3 1.8 TH/MM3 Monocytes # (Auto) 1.1 TH/MM3 1.2 TH/MM3 Eosinophils # (Auto) 0.0 TH/MM3 0.1 TH/MM3 Basophils # (Auto) 0.0 TH/MM3 0.0 TH/MM3 CBC Comment AUTO DIFF DIFF FINAL Differential Comment AUTO DIFF CONFIRMED Laboratory Tests Test 06/20/17 04:20 06/21/17 03:30 Blood Urea Nitrogen 21 MG/DL 31 MG/DL Creatinine 0.93 MG/DL 0.91 MG/DL Random Glucose 114 MG/DL 98 MG/DL Total Protein 6.1 GM/DL Albumin 2.4 GM/DL Calcium Level 8.6 MG/DL 8.6 MG/DL Alkaline Phosphatase 80 U/L Aspartate Amino Transf (AST/SGOT) 40 U/L Alanine Aminotransferase (ALT/SGPT) 24 U/L Total Bilirubin 0.9 MG/DL Sodium Level 141 MEQ/L 143 MEQ/L Potassium Level 3.9 MEQ/L 3.6 MEQ/L Chloride Level 109 MEQ/L 110 MEQ/L Carbon Dioxide Level 23.5 MEQ/L 25.2 MEQ/L Anion Gap 9 MEQ/L 8 MEQ/L Estimat Glomerular Filtration Rate 58 ML/MIN 60 ML/MIN Magnesium Level 1.8 MG/DL B-Type Natriuretic Peptide 1303 PG/ML Microbiology Date/Time Source Procedure Growth Status 06/19/17 13:47 Blood Peripheral Aerobic Blood Culture - Preliminary NO GROWTH IN 2 DAYS Resulted 06/19/17 13:47 Blood Peripheral Anaerobic Blood Culture - Preliminary NO GROWTH IN 2 DAYS Resulted 06/19/17 10:15 Blood Peripheral Aerobic Blood Culture - Preliminary NO GROWTH IN 2 DAYS Resulted 06/19/17 10:15 Blood Peripheral Anaerobic Blood Culture - Preliminary NO GROWTH IN 2 DAYS Resulted Imaging Last Impressions Renal Ultrasound 06/17/17 0000 Signed Impressions: Service Date/Time: Saturday, June 17, 2017 10:49 - CONCLUSION: 1. Small echogenic kidneys characteristic of medical renal disease. No acute findings. Da Raymundo MD Chest X-Ray 06/17/17 0000 Signed Impressions: Service Date/Time: Saturday, June 17, 2017 00:21 - CONCLUSION: Normal examination. Mild interstitial prominence. Right IJ central line with its tip overlying the SVC. No visible pneumothorax. Sumit Carter MD Physical Exam GENERAL: Awake, not oriented. Smiled and tracked. SKIN: Cool and dry. No generalized rash, no ecchymoses and no evidence of embolic lesions. HEAD: Has scars on her scalp, has an indentation on her L frontal region. right forehead COMPUTING ARCHITECT shunt device with knob in place. EYES: [place] conjunctiva. No petechia or hemorrhage. Pupils equal, round and reactive to light. Extraocular movements full and intact. No scleral icterus. No injection or drainage. EARS, NOSE AND THROAT: Nose without bleeding or purulent nasal discharge. No sinus tenderness. Mucous membranes pink and moist. No oral lesions noted. No exudate. No oral thrush. NECK: Trachea midline. Supple and not tender, no meningeal signs CARDIOVASCULAR: Regular rate and rhythm. No murmurs, rubs or gallops heard RESPIRATORY: Scattered rhonchi ABDOMEN: Soft, nondistended, moaning some during palpation, not guarding. Bowel sounds present and normoactive. No organomegaly. EXTREMITIES: No clubbing, cyanosis, or edema. No joint effusion, has good ROM. NEUROLOGICAL: lethargic but arousable. PSYCHIATRIC: Unable to assess LINE: No evidence of infection : Arenas in place, urine looks clear Assessment & Plan Remarks IMPRESSION Sepsis on admission, with shock, BP better - due to UTI likely UTI, with hx recurrent bladder infecion, likely due to incomplete emptying - C/S Pansensitive Klebsiella Possible aspiration PNA in setting of acute metabolic encephalopathy, Acute metabolic encephalopathy. Respiratory failure Hx CVA with R sided weakness, and aphasia Hx COMPUTING ARCHITECT shunt placement (original in 1989, then replaced at in Feb 2017: has a device to control flow of CSF by magnetic device) RECOMMENDATION Continue Cefepime IV (has multiple drug allergies spouse does not want meds changed) No further vanc doses. Will not add flagyl as concern for worsening of encephalopathy. Follow cultures Follow clinically. rosalind RN Will follow prn over the next few days. to resume care on 06/26/2017. If any change in clinical condition please call sooner. Rosa Martin MD Jun 21, 2017 11:20
--- NOTE | 2017-06-21 12:03 | HHI.PR ---
Subjective Remarks More confused today. Per she is worse than yesterday. Patient is deteriorating. Will give extra lasix. Discussed with the at length. Objective Vitals Vital Signs Date Time Temp Pulse Resp B/P (MAP) Pulse Ox O2 Delivery O2 Flow Rate FiO2 06/21/17 08:13 98 Nasal Cannula 4.00 06/21/17 08:00 103 06/21/17 08:00 105 21 158/85 (109) 95 06/21/17 08:00 99.4 118 21 158/85 (109) 94 06/21/17 06:00 103 06/21/17 04:00 105 06/21/17 04:00 97.9 105 21 128/71 (90) 95 06/21/17 03:38 94 Nasal Cannula 4.00 06/21/17 02:00 97 06/21/17 00:37 99 Nasal Cannula 4.00 06/21/17 00:00 90 06/21/17 00:00 96.8 90 18 117/60 (79) 98 06/20/17 22:00 87 06/20/17 20:25 99 Nasal Cannula 4.00 06/20/17 20:00 97 06/20/17 20:00 97.3 97 36 114/64 (81) 98 06/20/17 19:00 96 Nasal Cannula 2.00 06/20/17 18:00 108 06/20/17 16:00 98.4 99 25 127/66 (86) 97 06/20/17 16:00 97 06/20/17 14:00 99 I/O 06/20/17 06/20/17 06/20/17 06/21/17 06/21/17 06/21/17 07:00 15:00 23:00 07:00 15:00 23:00 Intake Total 100 ml 100 ml 120 ml 150 ml Output Total 350 ml 750 ml 250 ml Balance -250 ml 100 ml -630 ml -100 ml Intake Oral 120 ml 50 ml IV Total 100 ml 100 ml 100 ml Output Urine Total 350 ml 750 ml 250 ml # Bowel Movements 0 0 Result Diagram: 06/21/17 0330 06/21/17 0330 Imaging Last Impressions Chest X-Ray 06/19/17 0000 Signed Impressions: Service Date/Time: Monday, June 19, 2017 09:41 - CONCLUSION: Interval development of bilateral consolidative infiltrates in the mid and lower lungs, and probable bilateral pleural effusions. Swapnil Esposito MD Renal Ultrasound 06/17/17 0000 Signed Impressions: Service Date/Time: Saturday, June 17, 2017 10:49 - CONCLUSION: 1. Small echogenic kidneys characteristic of medical renal disease. No acute findings. Da Raymundo MD Objective Remarks GENERAL: 76 yo female, in bed, chronically ill, doesn't appear in acute distress. CARDIOVASCULAR: Regular rate and rhythm. RESPIRATORY: No accessory muscle use. Clear to auscultation. Breath sounds equal bilaterally. GASTROINTESTINAL: Abdomen soft, non-tender, nondistended. Hepatic and splenic margins not palpable. MUSCULOSKELETAL: Extremities without clubbing, cyanosis, or edema. No obvious deformities. NEUROLOGICAL: Awake and alert. Doesn't follow commands. Responding to questions with no, smiles. A/P Problem List: (1) Hypotension ICD Code: I95.9 - Hypotension, unspecified (2) UTI (urinary tract infection) ICD Code: N39.0 - Urinary tract infection, site not specified (3) Septic shock ICD Code: A41.9 - Sepsis, unspecified organism; R65.21 - Severe sepsis with septic shock (4) Severe sepsis ICD Code: A41.9 - Sepsis, unspecified organism; R65.20 - Severe sepsis without septic shock Status: Acute (5) Pancytopenia ICD Code: D61.818 - Other pancytopenia Status: Acute Assessment and Plan UTI Sepsis severe, was noted with low BP and did require pressors PNA Hypotension. Resolved, Off pressors. Now with elevated BP Systolic CHF with low EF of 25-30%, elevated BNP in 1300. Add metoprolol, lisinopril. Monitor BP closely Cirrhosis Anemia of chronic disease History of recurrent UTIs Right hemiparesis History of SHOPPER shunt Received aggressive fluid resuscitation and was on Levophed. Off Levophed. BP is stable. Off IVF. However noted with chest congestion, dessating and was on BiPAP overnight 06/19/17. CXR reviewed with bilateral PNA, bilat effusions. Received solumedrol x1, lasix IV. Monitor UOP, renal function. ABG is reassuring. Increased lasix IV 20 mg to BID. Monitro closely UOP, kidney function and BP. BNP is elevated in 1300s. 2D ECHO pending. Continue cefepime per ID recommendation ID consulted, and ff, appreciate recommendations Continue Keppra DVT prophylaxis with cutaneous heparin Discussed with ICU nurse, family at bedside her , discussed at length Code Status DNR Deteriorating. Consult hospice for further eval and recommendations. Katherine Lehman MD Jun 21, 2017 12:03
[2017-06-21] MEDS ORDERED: FUROSEMIDE 40 MG/4 ML VIAL IV PUSH ONE (12:15)
--- NOTE | 2017-06-21 12:25 | ECHRPT ---
Indication: Shortness of Breath CONCLUSIONS The left ventricular systolic function is severely reduced with an estimated ejection fraction in th e range of 25-30%. Wall thickness is measured at the upper limits of normal. Normal left ventricular size. The left atrial size is [id number] dilated. Mitral annular calcification is present. Tjuzz-xj-zlnv mitral valve regurgitation. Tricuspid valve prolapse. There is mild to moderate tricuspid valve regurgitation. The estimated pulmonary arterial pressure is 52.5 mmHg. A left sided pleural effusion is present. BP: 126 / 72 HR: 89 Rhythm: Sinus MEASUREMENTS (Male / Female) Normal Values Technical Quality:Fair 2D ECHO LV Diastolic Diameter PLAX 3.4 cm 4.2 - 5.9 / 3.9 - 5.3 cm LV Systolic Diameter PLAX 2.7 cm IVS Diastolic Thickness 1.0 cm 0.6 - 1.0 / 0.6 - 0.9 cm LVPW Diastolic Thickness 1.0 cm 0.6 - 1.0 / 0.6 - 0.9 cm LV Relative Wall Thickness 0.6 RV Internal Dim ED PLAX 2.3 cm LVOT Diameter 1.9 cm LA Systolic Diameter LX 3.3 cm 3.0 - 4.0 / 2.7 - 3.8 cm LA Volume Index 50.5 cm/m 16 - 28 cm/m M-MODE Aortic Root Diameter MM 3.1 cm LA Systolic Diameter MM 3.4 cm LA Ao Ratio MM 1.1 AV Cusp Separation MM 1.8 cm DOPPLER AV Peak Velocity 147.0 cm/s AV Peak Gradient 8.6 mmHg LVOT Peak Velocity 90.5 cm/s LVOT Peak Gradient 3.3 mmHg AV Area Cont Eq pk 1.7 cm MV Area PHT 4.9 cm Mitral E Point Velocity 144.0 cm/s Mitral A Point Velocity 117.0 cm/s Mitral E to A Ratio 1.2 LV E' Lateral Velocity 11.3 cm/s Mitral E to LV E' Lateral Ratio 12.7 LV E' Septal Velocity 12.4 cm/s Mitral E to LV E' Septal Ratio 11.6 TR Peak Velocity 326.0 cm/s TR Peak Gradient 42.5 mmHg Right Atrial Pressure 10.0 mmHg Pulmonary Artery Systolic Pressu 52.5 mmHg Right Ventricular Systolic Press 52.5 mmHg FINDINGS LEFT VENTRICLE The left ventricular systolic function is severely reduced with an estimated ejection fraction in th e range of 25-30%. Wall thickness is measured at the upper limits of normal. Normal left ventricular size. RIGHT VENTRICLE Normal right ventricular size and systolic function. LEFT ATRIUM The left atrial size is myjt-ve-lidzpmknqt dilated. RIGHT ATRIUM The right atrial size is normal. ATRIAL SEPTUM Normal atrial septal thickness without atrial level shunting by limited color doppler interrogation. AORTA The aortic root and proximal ascending aorta are normal in size on limited imaging. MITRAL VALVE Mitral annular calcification is present. Vljlm-wi-trkc mitral valve regurgitation. AORTIC VALVE Trileaflet aortic valve. No aortic valve stenosis or regurgitation. TRICUSPID VALVE Tricuspid valve prolapse. There is mild to moderate tricuspid valve regurgitation. The estimated pulmonary arterial pressure is 52.5 mmHg. PULMONARY VALVE No pulmonary valve regurgitation or stenosis. VESSELS The inferior vena cava is normal in size. PERICARDIUM A left sided pleural effusion is present. Luciano Singh MD, FACC, FSCAI (Electronically Signed) Final Date:21 June 2017 12:24
[2017-06-21] MEDS: CEFEPIME INJ 2,000 MG in SODIUM CHLORIDE 0.9% INJ 100 ML IV SCH ×2 (12:35→21:14)
[2017-06-21] MEDS: ENOXAPARIN SODIUM 40 MG/0.4 ML SYRINGE SQ SCH (12:35)
[2017-06-21] MEDS: METOPROLOL TARTRATE 25 MG TAB PO SCH (21:05)
[2017-06-21] MEDS: traZODone HCL 50 MG TAB PO SCH (21:05)
[2017-06-22] VITALS (12 sets, daily range): BP systolic 104–155; BP diastolic 56–86; PULSE 81–109; RESP 16–26; O2SAT 93–100
[2017-06-22] MEDS: CHLORHEXIDINE GLUCONATE 2 % 1 PACK (2 CLOTHS)(taper/protocol) TOPICAL SCH (03:31)
[2017-06-22] MEDS: LEVOTHYROXINE SODIUM 50 MCG TAB PO SCH (05:17)
--- NOTE | 2017-06-22 08:14 | HHI.PR ---
Subjective Remarks More awake and alert. With some sob. Weak. Able to nod to some questions. at bedside awaiting to talk with hospice. All questions answered to best of my ability. Objective Vitals Vital Signs Date Time Temp Pulse Resp B/P (MAP) Pulse Ox O2 Delivery O2 Flow Rate FiO2 06/22/17 06:00 104 06/22/17 04:00 98.6 109 25 155/86 (109) 100 06/22/17 04:00 109 06/22/17 03:27 100 Nasal Cannula 4.00 06/22/17 02:00 98 06/22/17 00:40 100 Nasal Cannula 4.00 06/22/17 00:00 103 06/22/17 00:00 98.8 103 23 152/78 (102) 100 06/21/17 22:00 120 06/21/17 20:26 95 Nasal Cannula 4.00 06/21/17 20:00 98.8 111 21 148/77 (100) 98 06/21/17 20:00 111 06/21/17 19:00 97 Nasal Cannula 2.00 06/21/17 18:00 107 06/21/17 18:00 96 Nasal Cannula 2.00 06/21/17 17:30 99.0 110 45 95 06/21/17 17:00 99.0 107 38 139/66 (90) 100 06/21/17 16:30 99.0 109 28 99 06/21/17 16:00 98.3 104 22 90/52 (65) 96 06/21/17 16:00 99.0 100 20 129/63 (85) 99 06/21/17 16:00 110 06/21/17 15:30 99.0 109 19 100 06/21/17 15:00 99.0 112 20 140/78 (98) 99 06/21/17 14:30 98.8 104 32 99 06/21/17 14:00 110 06/21/17 14:00 98.8 113 37 151/66 (94) 98 06/21/17 13:30 99.0 112 31 98 06/21/17 13:00 99.0 109 22 137/65 (89) 98 06/21/17 12:30 99.0 110 21 98 06/21/17 12:00 99.0 110 22 137/66 (89) 96 06/21/17 12:00 99.0 112 23 137/66 (89) 98 06/21/17 12:00 110 06/21/17 11:30 99.0 117 24 97 06/21/17 11:00 99.1 117 26 152/77 (102) 97 06/21/17 10:30 99.3 118 26 97 06/21/17 10:01 99.5 119 27 155/72 (99) 97 06/21/17 10:00 103 06/21/17 10:00 99.5 121 28 97 06/21/17 09:30 99.3 120 28 96 06/21/17 09:00 99.3 122 28 185/96 (125) 95 I/O 06/21/17 06/21/17 06/21/17 06/22/17 06/22/17 06/22/17 07:00 15:00 23:00 07:00 15:00 23:00 Intake Total 150 ml 100 ml 100 ml Output Total 250 ml 1400 ml 300 ml Balance -100 ml -1300 ml -200 ml Intake Oral 50 ml 100 ml IV Total 100 ml 100 ml Output Urine Total 250 ml 1400 ml 300 ml # Bowel Movements 0 1 Result Diagram: 06/21/17 0330 06/21/17 0330 Imaging Last Impressions Chest X-Ray 06/19/17 0000 Signed Impressions: Service Date/Time: Monday, June 19, 2017 09:41 - CONCLUSION: Interval development of bilateral consolidative infiltrates in the mid and lower lungs, and probable bilateral pleural effusions. Swapnil Esposito MD Renal Ultrasound 06/17/17 0000 Signed Impressions: Service Date/Time: Saturday, June 17, 2017 10:49 - CONCLUSION: 1. Small echogenic kidneys characteristic of medical renal disease. No acute findings. Da Raymundo MD Objective Remarks GENERAL: 76 yo female, in bed, chronically ill, doesn't appear in acute distress. CARDIOVASCULAR: Regular rate and rhythm. RESPIRATORY: No accessory muscle use. Clear to auscultation. Breath sounds equal bilaterally. GASTROINTESTINAL: Abdomen soft, non-tender, nondistended. Hepatic and splenic margins not palpable. MUSCULOSKELETAL: Extremities without clubbing, cyanosis, or edema. No obvious deformities. NEUROLOGICAL: Awake and alert. Doesn't follow commands. Responding to questions with no, smiles. A/P Problem List: (1) Hypotension ICD Code: I95.9 - Hypotension, unspecified (2) UTI (urinary tract infection) ICD Code: N39.0 - Urinary tract infection, site not specified (3) Septic shock ICD Code: A41.9 - Sepsis, unspecified organism; R65.21 - Severe sepsis with septic shock (4) Severe sepsis ICD Code: A41.9 - Sepsis, unspecified organism; R65.20 - Severe sepsis without septic shock Status: Acute (5) Pancytopenia ICD Code: D61.818 - Other pancytopenia Status: Acute Assessment and Plan UTI with Klebsiella. Patient with h/o recurrent bladder infection, likely due to incomplete emptying Sepsis severe on admission with shock, respiratory failure and also required pressors. Pt was noted with low BP and did require pressors Possible aspiration PNA in setting of acute metabolic encephalopathy Acute metabolic encephalopathy Respiratory failure requiring BiPAP Hypotension. Resolved, Off pressors. Now with elevated BP Systolic CHF with low EF of 25-30%, elevated BNP in 1300. Add metoprolol, lisinopril. 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 Off Levophed. BP is stable. Off IVF. However noted with chest congestion, dessating and was on BiPAP overnight 06/19/17. CXR reviewed with bilateral PNA, bilat effusions. Received solumedrol x1, lasix IV. Monitor UOP, renal function. ABG is reassuring. Increased lasix IV 20 mg to BID. Monitro closely UOP, kidney function and BP. BNP is elevated in 1300s. 2D ECHO reviewed low EF of 25-30% Continue cefepime, appreciate ID recommendations ID consulted, and ff, appreciate recommendations Urine cx pansensitive Klebsiella pneumoniae Continue Keppra DVT prophylaxis with cutaneous heparin Discussed with ICU nurse, family at bedside her Code Status DNR Deteriorating. Consult hospice for further eval and recommendations. Hospice eval pending. Katherine Lehman MD Jun 22, 2017 08:13
[2017-06-22] MEDS: BRIMONIDINE TARTRATE 0.2% OPHT SOLN 5 ML BTL EACH EYE SCH (08:35)
[2017-06-22] MEDS: SODIUM CHLORIDE 0.9% FLUSH 10 ML FLUSH IV FLUSH SCH (08:35)
[2017-06-22] MEDS: FLUTICASONE PROPIONATE 50 MCG/ACT 16 GM NASAL SPRAY EACH NARE SCH ×3 (08:35→11:50)
[2017-06-22] MEDS: LACTOBACILLUS ACIDOPHILUS TAB PO SCH ×2 (08:36→11:48)
[2017-06-22] MEDS: levETIRAcetam 250 MG TAB PO SCH (08:36)
[2017-06-22] MEDS: DOCUSATE SODIUM 50 MG/SENNA 8.6 MG TAB PO SCH (08:36)
[2017-06-22] MEDS: FAMOTIDINE 20 MG TAB PO SCH (08:37)
[2017-06-22] MEDS: METOPROLOL TARTRATE 25 MG TAB PO SCH (08:37)
[2017-06-22] MEDS: levETIRAcetam 500 MG TAB PO SCH (08:44)
[2017-06-22] MEDS ORDERED: LISINOPRIL 5 MG TAB PO SCH (09:00)
[2017-06-22] MEDS ORDERED: LISI-519 PO (11:15)
[2017-06-22] MEDS ORDERED: METO25TA3 PO (11:15)
--- NOTE | 2017-06-22 11:15 | HHI.DS ---
Discharge Summary Admission Date Jun 16, 2017 at 14:34 Discharge Date: Jun 22, 2017 Admitting Diagnosis hypotension, UTI,cirrhosis (1) Hypotension ICD Code: I95.9 - Hypotension, unspecified (2) UTI (urinary tract infection) ICD Code: N39.0 - Urinary tract infection, site not specified (3) Septic shock ICD Code: A41.9 - Sepsis, unspecified organism; R65.21 - Severe sepsis with septic shock (4) Severe sepsis ICD Code: A41.9 - Sepsis, unspecified organism; R65.20 - Severe sepsis without septic shock Status: Acute (5) Pancytopenia ICD Code: D61.818 - Other pancytopenia Status: Acute Procedures none Brief History - From Admission Mrs. Kiran is a 76 year old female. At baseline she has expressive and receptive aphasia. She can provide no history. She has brought in secondary to low blood pressures at home. She is found to have urinary tract infection. Temperature is a little. Blood pressure is low. White blood cell count is suppressed. She meets criteria for septic shock. Lactic acid is pending. A review of her past hospital visit shows no previous history of chronic hypothermia, chronic hypotension, or chronic leukopenia. No other complaints at this time. CBC/BMP: 06/21/17 0330 06/21/17 0330 Significant Findings Laboratory Tests Test 06/20/17 02:43 06/20/17 04:20 06/21/17 03:30 Arterial Blood pH 7.46 (7.380-7.420) Arterial Blood Partial Pressure CO2 31 mmHg (38-42) Blood Gas Hemoglobin 10.0 G/DL (12.0-16.0) Red Blood Count 2.99 MIL/MM3 (4.00-5.30) 2.89 MIL/MM3 (4.00-5.30) Hemoglobin 9.8 GM/DL (11.6-15.3) 9.3 GM/DL (11.6-15.3) Hematocrit 28.5 % (35.0-46.0) 27.3 % (35.0-46.0) Platelet Count 84 TH/MM3 (150-450) 113 TH/MM3 (150-450) Neutrophils (%) (Auto) 74.5 % (16.0-70.0) 72.4 % (16.0-70.0) Monocytes (%) (Auto) 11.1 % (0.0-8.0) 10.5 % (0.0-8.0) Monocytes # (Auto) 1.1 TH/MM3 (0-0.9) 1.2 TH/MM3 (0-0.9) Blood Urea Nitrogen 21 MG/DL (7-18) 31 MG/DL (7-18) Random Glucose 114 MG/DL (74-106) Total Protein 6.1 GM/DL (6.4-8.2) Albumin 2.4 GM/DL (3.4-5.0) Aspartate Amino Transf (AST/SGOT) 40 U/L (15-37) Chloride Level 109 MEQ/L (98-107) 110 MEQ/L (98-107) Estimat Glomerular Filtration Rate 58 ML/MIN (>89) 60 ML/MIN (>89) White Blood Count 11.7 TH/MM3 (4.0-11.0) Neutrophils # (Auto) 8.5 TH/MM3 (1.8-7.7) B-Type Natriuretic Peptide 1303 PG/ML (0-100) Imaging Last Impressions Chest X-Ray 06/19/17 0000 Signed Impressions: Service Date/Time: Monday, June 19, 2017 09:41 - CONCLUSION: Interval development of bilateral consolidative infiltrates in the mid and lower lungs, and probable bilateral pleural effusions. Swapnil Esposito MD Renal Ultrasound 06/17/17 0000 Signed Impressions: Service Date/Time: Saturday, June 17, 2017 10:49 - CONCLUSION: 1. Small echogenic kidneys characteristic of medical renal disease. No acute findings. Da Raymundo MD PE at Discharge GENERAL: 76 yo female, in bed, chronically ill, doesn't appear in acute distress. CARDIOVASCULAR: Regular rate and rhythm. RESPIRATORY: No accessory muscle use. Clear to auscultation. Breath sounds equal bilaterally. GASTROINTESTINAL: Abdomen soft, non-tender, nondistended. Hepatic and splenic margins not palpable. MUSCULOSKELETAL: Extremities without clubbing, cyanosis, or edema. No obvious deformities. NEUROLOGICAL: Awake and alert. Doesn't follow commands. Responding to questions with no, smiles. Hospital Course UTI with Klebsiella. Patient with h/o recurrent bladder infection, likely due to incomplete emptying Sepsis severe on admission with shock, respiratory failure and also required pressors. Pt was noted with low BP and did require pressors Possible aspiration PNA in setting of acute metabolic encephalopathy Acute metabolic encephalopathy Respiratory failure requiring BiPAP Hypotension. Resolved, Off pressors. Now with elevated BP Systolic CHF with low EF of 25-30%, elevated BNP in 1300. Add metoprolol, lisinopril. 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 Off Levophed. BP is stable. Off IVF. However noted with chest congestion, dessating and was on BiPAP overnight 06/19/17. CXR reviewed with bilateral PNA, bilat effusions. Received solumedrol x1, lasix IV. Monitor UOP, renal function. ABG is reassuring. Increased lasix IV 20 mg to BID. Monitro closely UOP, kidney function and BP. BNP is elevated in 1300s. 2D ECHO reviewed low EF of 25-30% Continue cefepime, appreciate ID recommendations ID consulted, and ff, appreciate recommendations Urine cx pansensitive Klebsiella pneumoniae Continue Keppra DVT prophylaxis with cutaneous heparin Discussed with ICU nurse, family at bedside her Code Status DNR Deteriorating. Consult hospice for further eval and recommendations. Discussed with hospice. patient is accepted to hospice facility . The patient is DC to hospice expect deteriorating condition. Discussed with the patient , family, hospice, and the nurse. Pt Condition on Discharge: Stable Discharge Disposition: Hospice/Med Facility Discharge Time: > 30 minutes Discharge Instructions DIET: Follow Instructions for: Heart Healthy Diet Activities you can perform: Regular-No Restrictions Follow up Referrals: Cardiology PCP Follow-up - 2-3 Days New Medications: Lisinopril (Lisinopril) 5 Mg Tab 2.5 MG PO DAILY for Blood Pressure Management, #30 TAB Metoprolol Tartrate (Metoprolol Tartrate) 25 Mg Tab 12.5 MG PO Q12HR for Blood Pressure Management, #60 TAB Continued Medications: Brimonidine Opth Drops (Brimonidine Opth Drops) 0.2% Soln 1 DROP EACH EYE BID for Intraocular pressure, #1 BOTTLE 0 Refills Calcium Citrate-Vitamin D (Calcium Citrate-Vitamin D) 315-200 Mg-Unit Tab 1 TAB PO BID for Calcium Supplement, TAB 0 Refills Fluticasone Nasal [place] (Fluticasone Nasal [place]) 50 Mcg/Act Naspr 100 MCG EACH NARE DAILY for Allergy Management, #1 BOTTLE 0 Refills 50 mcg/spray Lactulose Liq (Lactulose Liq) 10 Gm/15 Ml Soln 15 ML PO Q8HR PRN for CONSTIPATION, ML 0 Refills Levetiracetam (Keppra) 500 Mg Tab 750 MG PO BID for Control Seizures, #60 TAB 0 Refills Levothyroxine (Levothyroxine) 50 Mcg Tab 50 MCG PO DAILY for Thyroid, #30 TAB 0 Refills Loratadine (Claritin) 10 Mg Cap 10 MG PO DAILY for Allergy Management, CAP 0 Refills Omeprazole (Omeprazole) 10 Mg Cap 20 MG PO DAILY, #30 CAP 0 Refills Oral Electrolytes (Thermotabs) 287 Mg-180 Mg-15 Mg Tab 1 TAB PO DAILY for Nutritional Supplement Spironolactone (Spironolactone) 25 Mg Tab 25 MG PO DAILY, #30 TAB 0 Refills Trazodone (Trazodone) 50 Mg Tab 25 MG PO HS for Control Depression, #30 TAB 0 Refills Discontinued Medications: Lisinopril (Lisinopril) 20 Mg Tab 10 MG PO BID, #30 TAB 0 Refills Katherine Lehman MD Jun 22, 2017 11:15
[2017-06-22] MEDS: CEFEPIME INJ 2,000 MG in SODIUM CHLORIDE 0.9% INJ 100 ML IV SCH (11:48)
[2017-06-22] MEDS: ENOXAPARIN SODIUM 40 MG/0.4 ML SYRINGE SQ SCH (11:48)
[2017-06-22] MEDS: FUROSEMIDE 20 MG/2 ML VIAL IV PUSH SCH (11:50)
== END 2017-06-22 13:45 | disposition hospice, inpatient (51) | DRG 871 ==
LOC: PHED 11:52 → PHEDA 14:34 → PHICU 15:06 → HIMN 06-17 06:15
PROVIDERS: ADMIT Hospitalist; ATTEND Hospitalist
PROC: 02HV33Z Insertion of Infusion Device into Superior Vena Cava, Percutaneous Approach (ICD-10-PCS; 2017-06-17)
PROC: 5A09357 Assistance with Respiratory Ventilation, Less than 24 Consecutive Hours, Continuous Positive Airway Pressure (ICD-10-PCS; principal; 2017-06-19)
DX: A41.9 Sepsis, unspecified organism (principal); R65.21 Severe sepsis with septic shock; J96.90 Respiratory failure, unspecified, unspecified whether with hypoxia or hypercapnia; J69.0 Pneumonitis due to inhalation of food and vomit; G93.41 Metabolic encephalopathy; D61.818 Other pancytopenia; I50.20 Unspecified systolic (congestive) heart failure; I69.351 Hemiplegia and hemiparesis following cerebral infarction affecting right dominant side; N39.0 Urinary tract infection, site not specified; I11.0 Hypertensive heart disease with heart failure; R56.9 Unspecified convulsions; K70.30 Alcoholic cirrhosis of liver without ascites; K72.90 Hepatic failure, unspecified without coma; D63.8 Anemia in other chronic diseases classified elsewhere; I69.320 Aphasia following cerebral infarction; E03.9 Hypothyroidism, unspecified; Z66 Do not resuscitate; B96.1 Klebsiella pneumoniae [K. pneumoniae] as the cause of diseases classified elsewhere; M19.90 Unspecified osteoarthritis, unspecified site; R68.0 Hypothermia, not associated with low environmental temperature; F40.240 Claustrophobia; R51 Headache; F10.21 Alcohol dependence, in remission; Z98.2 Presence of cerebrospinal fluid drainage device; Z87.440 Personal history of urinary (tract) infections
CPT/HCPCS: 36600; 71045; 76775; 80048; 80053; 80202; 81001; 82140; 82805; 83605; 83735; 83880; 85025; 85610; 85730; 87040; 87077; 87086; 87186; 87641; 93005; 93306; 94002; 94003; 94640; 94664; 96360; 96361; J0692; J0713; J1630; J1650; J1940; J2060; J2920; J3370; J7030; J7050